=== PATIENT | male | born 1980 | race Caucasian/White ===

== ENCOUNTER → 2016-03-21 | Outpatient (CLI) | payer SELFPAY ==
--- NOTE | 2016-03-21 12:52 | PN ---
DATE OF SERVICE: 03/21/2016 A 35-year-old gentleman who has been [facility] for treatment of obstructive sleep apnea-hypopnea syndrome. We discussed results of diagnostic sleep study and CPAP titration with patient in detail. Diagnostic sleep study showed apnea-hypopnea index 9.5 with oxygen desaturation to 84.8%. Presently, patient is on treatment with CPAP at 9 cm of water. He tried to use equipment every night for the whole night. He sleeps better with the machine. He feels better with treatment during the day. [place] Sleepiness Scale is 4. I checked his CPAP unit. CPAP pressure of 9 cm of water. Usage 27 out of 30 nights, for more than 4 hours 22 out of 30 nights. Average usage 5.7 hours. Leak 4 L/min which is acceptable. Apnea-hypopnea index only 1.1, which is in normal range. IMPRESSION: 1. Obstructive sleep apnea-hypopnea syndrome on control with CPAP at 9 cm of water. Patient demonstrated good compliance with treatment, benefiting from treatment. 2. History of migraines. No recent episodes of migraines improved with treatment on CPAP. 3. Mild obesity. 4. History of bronchitis. 5. Restriction of nasal breathing. 6. Status post hernia repair. 7. Status post tonsillectomy. PLAN: 1. Continue treatment with CPAP every night for the whole night. 2. Losing weight. 3. Sleep hygiene with regular time in bed for at least 8 hours. 4. No driving if feeling any sleepiness. 5. Followup visit in 10 months if no problems. Thank you very much for allowing me to participate in the management of your patient. Sincerely, Remy Stephens MD, PhD, FAASM. Diplomat of [place] [employer], Sleep Medicine Board by [place] [employer] [place] [employer] Psychiatric Aide Instructor of [employer] [place]
== END | disposition home or self-care (01) ==
LOC: SLEEP 11:05
PROVIDERS: ATTEND Internal Medicine
DX: G47.33 Obstructive sleep apnea (adult) (pediatric) (principal); G43.909 Migraine, unspecified, not intractable, without status migrainosus; E66.9 Obesity, unspecified; Z87.898 Personal history of other specified conditions; Z98.890 Other specified postprocedural states

== ENCOUNTER 2016-04-19 13:38 | Inpatient (IN) | payer OTHER ==
[2016-04-19] MEDS ORDERED: ALBUTEROL NEBULIZED 2.5 MG/3 ML INHALATION STA (15:37)
[2016-04-19] MEDS ORDERED: IPRATROPIUM 0.5 MG/2.5 ML NEBU INHALATION STA ×2 (15:37→18:00)
[2016-04-19] MEDS ORDERED: SODIUM CHLORIDE 0.9% 1,000 ML IV STA (15:37)
[2016-04-19] MEDS ORDERED: KETOROLAC 30 MG/ML 1 ML VIAL IVP STA (15:39)
[2016-04-19] MEDS ORDERED: ACETAMINOPHEN IV (For NPO) 1,000 MG in EMPTY BAG 1 BAG IVPB STA (15:39)
--- NOTE | 2016-04-19 15:59 | ED ---
General Adult HPI - General Chief complaint: Upper Respiratory Infection Stated complaint: Congestion/SOB/Chest Pain Time Seen by Provider: 04/19/16 15:06 Source: patient, RN notes reviewed, old records reviewed Mode of arrival: wheelchair Limitations: no limitations - History of Present Illness Initial comments: This is a 35-year-old male the ER for evaluation of shortness of breath and chest pain. Patient has long-standing lung disease and history of sleep apnea. Patient coming in with substernal chest pain and significant cough and congestion. Patient tried to use CPAP last night with no ability to keep down her keep it on secondary to coughing and bronchospasm. Patient states he still having. Much difficulty breathing, also noted fever today. - Related Data Home Medications Medication Instructions Recorded Confirmed Aspirin/Acetaminophen/Caffeine 2 tab PO Q6H PRN MDD 8 TAB 10/24/15 04/19/16 [Excedrin Extra Strength Caplet] Acetaminophen-Codeine 300-30mg 1 tab PO Q6H PRN 01/10/16 04/19/16 [Tylenol #3] Cyclobenzaprine [Flexeril] 10 mg PO HS PRN 01/10/16 04/19/16 Allergies Allergy/AdvReac Type Severity Reaction Status Date / Time No Known Allergies Allergy Verified 04/19/16 15:10 Review of Systems ROS Statement: Those systems with pertinent positive or pertinent negative responses have been documented in the HPI. ROS Other: All systems not noted in ROS Statement are negative. Past Medical History Past Medical History: Asthma Additional Past Medical History / Comment(s): Headaches History of Any Multi-Drug Resistant Organisms: None Reported Past Surgical History: Hernia Repair Past Psychological History: No Psychological Hx Reported Smoking Status: Never smoker Past Alcohol Use History: None Reported Past Drug Use History: None Reported General Exam Limitations: no limitations General appearance: alert, in no apparent distress Head exam: Present: atraumatic, normocephalic, normal inspection Eye exam: Present: normal appearance, PERRL, EOMI. Absent: scleral icterus, conjunctival injection, periorbital swelling ENT exam: Present: normal exam, mucous membranes moist Neck exam: Present: normal inspection. Absent: tenderness, meningismus, lymphadenopathy Respiratory exam: Present: normal lung sounds bilaterally. Absent: respiratory distress, wheezes, rales, rhonchi, stridor Cardiovascular Exam: Present: regular rate, normal rhythm, normal heart sounds. Absent: systolic murmur, diastolic murmur, rubs, gallop, clicks GI/Abdominal exam: Present: soft, normal bowel sounds. Absent: distended, tenderness, guarding, rebound, rigid Extremities exam: Present: normal inspection, full ROM, normal capillary refill. Absent: tenderness, pedal edema, joint swelling, calf tenderness Back exam: Present: normal inspection Neurological exam: Present: alert, oriented X3, CN II-XII intact Psychiatric exam: Present: normal affect, normal mood Skin exam: Present: warm, dry, intact, normal color. Absent: rash Course Vital Signs 04/19/16 04/19/16 04/19/16 13:39 15:26 16:05 Temperature 98.6 F 101.7 F H Pulse Rate 111 H 101 H 94 Respiratory 18 18 Rate Blood Pressure 130/76 126/70 O2 Sat by Pulse 94 L 96 Oximetry 04/19/16 04/19/16 04/19/16 16:22 16:52 17:04 Temperature Pulse Rate 100 119 H 118 H Respiratory 22 Rate Blood Pressure 126/70 O2 Sat by Pulse 97 Oximetry 04/19/16 17:39 Temperature 99.0 F Pulse Rate 106 H Respiratory 18 Rate Blood Pressure 124/57 O2 Sat by Pulse 93 L Oximetry - Reevaluation(s) Reevaluation #1: 04/19/16 18:03 Patient with no real improvement after breathing treatment, patient does have sleep apnea, patient's oxygenation remains around 89% on room air Medical Decision Making - Medical Decision Making 35 male the ER for evaluation. This patient today presents for evaluation of severe shortness of breath cough and congestion, tachycardia low pulse ox. Patient will be admitted for continued hydration and IV steroids and around-the- clock breathing treatments. - Lab Data Result diagrams: 04/19/16 15:55 04/19/16 15:55 Lab Results 04/19/16 04/19/16 04/19/16 Range/Units 15:55 15:55 15:55 WBC 5.7 (3.8-10.6) k/uL RBC 4.78 (4.30-5.90) m/uL Hgb 14.1 (13.0-17.5) gm/dL Hct 42.6 (39.0-53.0) % MCV 89.1 (80.0-100.0) fL MCH 29.4 (25.0-35.0) pg MCHC 33.0 (31.0-37.0) g/dL RDW 13.4 (11.5-15.5) % Plt Count 225 (150-450) k/uL Neutrophils % 76 % Lymphocytes % 14 % Monocytes % 7 % Eosinophils % 1 % Basophils % 1 % Neutrophils # 4.3 (1.3-7.7) k/uL Lymphocytes # 0.8 L (1.0-4.8) k/uL Monocytes # 0.4 (0-1.0) k/uL Eosinophils # 0.1 (0-0.7) k/uL Basophils # 0.0 (0-0.2) k/uL PT (9.0-12.0) sec INR (<1.1) APTT (22.0-30.0) sec Sodium 140 (137-145) mmol/L Potassium 4.1 (3.5-5.1) mmol/L Chloride 103 (98-107) mmol/L Carbon Dioxide 21 L (22-30) mmol/L Anion Gap 16 mmol/L BUN 13 (9-20) mg/dL Creatinine 1.04 (0.66-1.25) mg/dL Est GFR (MDRD) Af Amer >60 (>60 ml/min/1.73 sqM) Est GFR (MDRD) Non-Af >60 (>60 ml/min/1.73 sqM) Glucose 83 (74-99) mg/dL Calcium 8.6 (8.4-10.2) mg/dL Magnesium 2.2 (1.6-2.3) mg/dL Total Bilirubin 0.7 (0.2-1.3) mg/dL AST 29 (17-59) U/L ALT 40 (21-72) U/L Alkaline Phosphatase 88 (38-126) U/L Total Creatine Kinase 173 H (55-170) U/L CK-MB (CK-2) 1.0 (0.0-2.4) ng/mL CK-MB (CK-2) Rel Index 0.6 Troponin I <0.012 (0.000-0.034) ng/mL NT-Pro-B Natriuret Pep pg/mL Total Protein 7.9 (6.3-8.2) g/dL Albumin 4.3 (3.5-5.0) g/dL 04/19/16 04/19/16 Range/Units 15:55 15:55 WBC (3.8-10.6) k/uL RBC (4.30-5.90) m/uL Hgb (13.0-17.5) gm/dL Hct (39.0-53.0) % MCV (80.0-100.0) fL MCH (25.0-35.0) pg MCHC (31.0-37.0) g/dL RDW (11.5-15.5) % Plt Count (150-450) k/uL Neutrophils % % Lymphocytes % % Monocytes % % Eosinophils % % Basophils % % Neutrophils # (1.3-7.7) k/uL Lymphocytes # (1.0-4.8) k/uL Monocytes # (0-1.0) k/uL Eosinophils # (0-0.7) k/uL Basophils # (0-0.2) k/uL PT 11.5 (9.0-12.0) sec INR 1.2 (<1.1) APTT 27.1 (22.0-30.0) sec Sodium (137-145) mmol/L Potassium (3.5-5.1) mmol/L Chloride (98-107) mmol/L Carbon Dioxide (22-30) mmol/L Anion Gap mmol/L BUN (9-20) mg/dL Creatinine (0.66-1.25) mg/dL Est GFR (MDRD) Af Amer (>60 ml/min/1.73 sqM) Est GFR (MDRD) Non-Af (>60 ml/min/1.73 sqM) Glucose (74-99) mg/dL Calcium (8.4-10.2) mg/dL Magnesium (1.6-2.3) mg/dL Total Bilirubin (0.2-1.3) mg/dL AST (17-59) U/L ALT (21-72) U/L Alkaline Phosphatase (38-126) U/L Total Creatine Kinase (55-170) U/L CK-MB (CK-2) (0.0-2.4) ng/mL CK-MB (CK-2) Rel Index Troponin I (0.000-0.034) ng/mL NT-Pro-B Natriuret Pep 86 pg/mL Total Protein (6.3-8.2) g/dL Albumin (3.5-5.0) g/dL - Radiology Data Radiology results: report reviewed (Chest x-ray is negative for acute disease), image reviewed Disposition Clinical Impression: Acute bronchitis, Asthmatic bronchitis, Upper respiratory infection Disposition: ADMITTED IP TO THIS [facility] Condition: Good Referrals: Hanna Salinas DO [Primary Care Provider] - 1-2 days
[2016-04-19 16:07] LABS: Basophils % (A) 1 %; CH 29.4; CHCM 33.2; Eosinophils # (A) 0.1 k/uL (0-0.7); Eosinophils % (A) 1 %; HCT 42.6 % (39.0-53.0); HDW 2.46; HGB 14.1 gm/dL (13.0-17.5); Luc # (Auto) 0.14; Luc % (Auto) 3; Lymphocytes # (A) 0.8 k/uL (1.0-4.8); Lymphocytes % (A) 14 %; MCH 29.4 pg (25.0-35.0); MCV 89.1 fL (80.0-100.0); Mean Platelet Volume 7.7; Monocytes # (A) 0.4 k/uL (0-1.0); Monocytes % (A) 7 %; Neutrophils # (A) 4.3 k/uL (1.3-7.7); Neutrophils % (A) 76 %; RBC 4.78 m/uL (4.30-5.90); RDW 13.4 % (11.5-15.5); WBC 5.7 k/uL (3.8-10.6); WBC (Perox) 5.79
[2016-04-19 16:18] LABS: ALT 40 U/L (21-72); AST 29 U/L (17-59); Alkaline Phosphatase 88 U/L (38-126); Anion Gap 16 mmol/L; Blood Urea Nitrogen 13 mg/dL (9-20); Calcium 8.6 mg/dL (8.4-10.2); Carbon Dioxide 21 mmol/L (22-30); Chloride 103 mmol/L (98-107); Glucose 83 mg/dL (74-99); INR 1.2 (<1.1); Magnesium 2.2 mg/dL (1.6-2.3); Non-African American GFR(MDRD) >60 (>60 ml/min/1.73 sqM); Partial Thromboplastin Time 27.1 sec (22.0-30.0); Potassium 4.1 mmol/L (3.5-5.1); Prothrombin Time 11.5 sec (9.0-12.0); Sodium 140 mmol/L (137-145); Total Bilirubin 0.7 mg/dL (0.2-1.3); Total Protein 7.9 g/dL (6.3-8.2)
[2016-04-19 16:38] LABS: Creatine Kinase 173 U/L (55-170)
[2016-04-19 16:51] LABS: Troponin I <0.012 ng/mL (0.000-0.034)
--- NOTE | 2016-04-19 17:46 | XR ---
EXAMINATION TYPE: XR chest 2V DATE OF EXAM: 04/19/2016 5:41 PM COMPARISON: 01/10/2016 HISTORY: Short of breath and cough TECHNIQUE: Frontal and lateral views of the chest are obtained. FINDINGS: Heart and mediastinum are normal. Lungs are clear. Diaphragm is normal. The bony thorax is intact. There are chest leads. IMPRESSION: No active cardiac pulmonary disease. No change.
[2016-04-19] MEDS ORDERED: methylPREDNISolone SOD SUCCI 125 MG/2 ML VIAL IV STA (18:00)
[2016-04-19] MEDS ORDERED: LEVALBUTEROL NEB 1.25 MG/3 ML AMP INHALATION STA (18:00)
[2016-04-19] MEDS ORDERED: ACETAMINOPHEN TAB 325 MG TAB PO PRN (18:37)
[2016-04-19] MEDS ORDERED: OSELTAMIVIR 75 MG CAP PO STA (18:40)
[2016-04-19 19:26] VITALS: RESP 16
[2016-04-19] MEDS: methylPREDNISolone SOD SUCCI 125 MG/2 ML VIAL IV SCH (19:41)
[2016-04-19] MEDS: SODIUM CHLORIDE 0.9% 1,000 ML IV SCH (19:42)
[2016-04-19] MEDS: IPRATROPIUM-ALBUTEROL 3 ML NEB INHALATION SCH (20:09)
[2016-04-19 23:14] VITALS: BMI 34.2
[2016-04-20] MEDS: methylPREDNISolone SOD SUCCI 125 MG/2 ML VIAL IV SCH ×3 (00:08→11:07)
[2016-04-20] MEDS: IBUPROFEN 600 MG TAB PO SCH ×3 (03:26→15:36)
[2016-04-20] MEDS: IPRATROPIUM-ALBUTEROL 3 ML NEB INHALATION SCH ×2 (07:17→11:15)
[2016-04-20] MEDS: SODIUM CHLORIDE 0.9% 1,000 ML IV SCH ×2 (08:00→10:30)
[2016-04-20] MEDS: OSELTAMIVIR 75 MG CAP PO SCH ×2 (08:02→21:16)
[2016-04-20] MEDS: ALBUTEROL NEBULIZED 2.5 MG/3 ML INHALATION SCH ×2 (15:11→19:31)
[2016-04-20] MEDS: ENOXAPARIN 40 MG/0.4 ML SYRINGE SQ SCH (15:51)
--- NOTE | 2016-04-20 16:02 | HP ---
DATE OF ADMISSION: 04/19/2016 PRESENTING COMPLAINT: Cough. HISTORY OF PRESENTING COMPLAINT: This is a pleasant 35 -year-old patient of Dr. Hanna Salinas with history of asthma, obstructive sleep apnea, uses CPAP machine. Patient presented with shortness of breath, cough, wheezing, aching all over, fever, fever going on for at least 24 hours. Presented to the hospital and found to have asthma exacerbation and influenza A. Admitted for the same. REVIEW OF SYSTEMS: CONSTITUTIONAL: Tired. HEENT: None. RESPIRATORY: As above. CARDIOVASCULAR: None. GASTROINTESTINAL: None. GENITOURINARY: None. MUSCULOSKELETAL: Aches and pains in the joints. Dermatological: None. HEMATOLOGICAL: None. LYMPHATIC: None. PSYCHIATRY: None. NEUROLOGICAL: None. PAST MEDICAL HISTORY: Asthma, sleep apnea. PAST SURGICAL HISTORY: Hernia repair. SOCIAL HISTORY: Lives with a roommate. Works at [employer]. Alcohol rarely. Does not smoke. FAMILY HISTORY: Reviewed, noncontributory to the presentation. HOME MEDICATIONS: 1. Flexeril 10 mg q.h.s. p.r.n. 2. Aspirin extra strength. 3. Tylenol #3 1 tablet q.6 p.r.n. ALLERGIES: None. On examination, temperature 101.7, pulse 101, respiration 18, blood pressure 122/70, pulse ox 96% on room air. GENERAL APPEARANCE: Sitting up tired-appearing. EYES: Pupils equal. Conjunctivae normal. HEENT: External appearance of nose and ears normal. Oral cavity normal. NECK: JVD not raised. Mass not palpable. RESPIRATORY: Effort increased. LUNGS: Decreased breath sounds. Expiratory wheezing. CARDIOVASCULAR: First and second sounds normal. No edema. ABDOMEN: Soft. Nontender. Liver and spleen not palpable. LYMPHATIC: No lymph nodes palpable in neck or axillae. PSYCHIATRY: Alert and oriented x3. Mood and affect normal. NEUROLOGICAL: Pupils equal. Cranial nerves grossly intact. Power and sensation grossly intact. INVESTIGATIONS: White count 5.7, hemoglobin 14.1, potassium 4.1. Influenza A ( ) detected. Chest x-ray ( ) active. ASSESSMENT: 1. Acute influenza A infection. 2. Acute intermittent asthma exacerbation secondary to above. 3. Obesity; body mass index of 34.2. 4. Sleep apnea previous used CPAP machine. PLAN: Patient is put on nebulized bronchodilators, IV steroids. Tamiflu. Care was discussed with the patient. Also given IV fluids.
[2016-04-20] MEDS: methylPREDNISolone SOD SUCCI 40 MG/ML 1 ML VIAL IV SCH (21:16)
[2016-04-21] MEDS: SODIUM CHLORIDE 0.9% 1,000 ML IV SCH ×2 (00:01→07:49)
[2016-04-21] MEDS: IBUPROFEN 600 MG TAB PO SCH ×2 (04:08→07:50)
[2016-04-21] MEDS: ALBUTEROL NEBULIZED 2.5 MG/3 ML INHALATION SCH ×3 (07:39→15:27)
[2016-04-21] MEDS: ENOXAPARIN 40 MG/0.4 ML SYRINGE SQ SCH (07:49)
[2016-04-21] MEDS: OSELTAMIVIR 75 MG CAP PO SCH (07:50)
[2016-04-21] MEDS: methylPREDNISolone SOD SUCCI 40 MG/ML 1 ML VIAL IV SCH (07:50)
[2016-04-21 16:26] VITALS: BP 137/85; PULSE 87; TEMP 97.8
--- NOTE | 2016-04-22 22:40 | DS ---
DATE OF ADMISSION: 04/19/2016 DATE OF DISCHARGE: 04/21/2016 FINAL DIAGNOSES: 1. Acute influenza A infection, possibly pneumonitis. 2. Acute intermittent asthma exacerbation secondary to above. 3. Obesity; body mass index of 34.2. 4. Chronic sleep apnea; uses a CPAP machine. HOSPITAL COURSE: This patient presented with influenza A pneumonitis and ended up with asthma exacerbation. Responded well to nebulized bronchodilators, Tamiflu. Doing better at the time of discharge. Tolerating a diet. On examination, lungs have decreased breath sounds. CARDIOVASCULAR: First and second sounds normal. DISCHARGE MEDICATIONS: 1. Tylenol 3 one tablet q.6 p.r.n. 2. Flexeril 10 mg p.o. at bedtime p.r.n. 3. Tamiflu 75 mg p.o. q.12. 4. Prednisone taper. 5. Albuterol p.r.n. Patient to return to work on April 25. Patient has been told he should be excused from jury duty, which is due tomorrow. Follow up with Dr. Hanna Salinas in 3 days.
== END 2016-04-21 17:00 | disposition home or self-care (01) | DRG 194 ==
LOC: EC 13:38 → 5MS5E 18:02
PROVIDERS: ADMIT Hospitalist; ATTEND Hospitalist
DX: J10.00 Influenza due to other identified influenza virus with unspecified type of pneumonia (principal); J45.21 Mild intermittent asthma with (acute) exacerbation; G47.33 Obstructive sleep apnea (adult) (pediatric); Z79.82 Long term (current) use of aspirin; Z79.899 Other long term (current) drug therapy
CPT/HCPCS: 36415; 71020; 80053; 82550; 82553; 83735; 83880; 84484; 85025; 85379; 85610; 85730; 87502; 93005; 94640; 94645; 96361; 96374; 96375; 99285

== ENCOUNTER 2017-01-24 22:18 | Emergency (ER) | payer SELFPAY ==
[2017-01-24 22:27] VITALS: PULSE 66
[2017-01-24] MEDS ORDERED: SODIUM CHLORIDE 0.9% 1,000 ML IV STA (22:51)
--- NOTE | 2017-01-24 22:59 | ED ---
Extremity Problem HPI - General Chief complaint: Extremity Problem,Nontraumatic Stated complaint: Arm Pain Time Seen by Provider: 01/24/17 22:33 Source: patient, RN notes reviewed, old records reviewed Mode of arrival: ambulatory Limitations: no limitations - History of Present Illness Initial comments: 36-year-old male presents emergency Department chief complaint of right hand cramping today while trying to work. Apparently patient pulled over to the side of the road because his hands cramping. He states he felt extremely nauseous at that time. He vomited. He also defecated accidentally. Patient states that he has never done that before. Denies any recent falls or trauma. Denies any back pain or leg numbness or tingling. Denies any chest pain or shortness of breath. Patient states that he has no significant abdominal pain at this time. He does complain of right hand cramping and pain. Sensory may have carpal tunnel syndrome. He complains of some numbness or tingling over the third through fourth fingers. 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 - Related Data Home Medications Medication Instructions Recorded Confirmed Aspirin/Acetaminophen/Caffeine 2 tab PO Q6H PRN 10/24/15 01/24/17 [Excedrin Extra Strength Caplet] Acetaminophen-Codeine 300-30mg 1 tab PO Q6H PRN 01/10/16 01/24/17 [Tylenol w/codeine #3] Cyclobenzaprine [Flexeril] 10 mg PO HS PRN 01/10/16 01/24/17 Cholecalciferol [Vitamin D3] 1,000 unit PO DAILY 01/24/17 01/24/17 Allergies Allergy/AdvReac Type Severity Reaction Status Date / Time No Known Allergies Allergy Verified 01/24/17 22:40 Review of Systems ROS Statement: Those systems with pertinent positive or pertinent negative responses have been documented in the HPI. ROS Other: All systems not noted in ROS Statement are negative. Past Medical History Past Medical History: Asthma Additional Past Medical History / Comment(s): Headaches History of Any Multi-Drug Resistant Organisms: None Reported Past Surgical History: Hernia Repair Past Psychological History: No Psychological Hx Reported Smoking Status: Never smoker Past Alcohol Use History: None Reported Past Drug Use History: None Reported - Past Family History Mother Family Medical History: No Reported History Father Family Medical History: Asthma Additional Family Medical History / Comment(s): Pt states that he is very sick but does not want to elaborate General Exam - General Exam Comments Initial Comments: This is a 36 year old male, no distress Limitations: no limitations General appearance: alert, in no apparent distress Head exam: Present: atraumatic, normocephalic, normal inspection Eye exam: Present: normal appearance, PERRL, EOMI. Absent: scleral icterus, conjunctival injection, periorbital swelling ENT exam: Present: normal exam, mucous membranes moist Neck exam: Present: normal inspection. Absent: tenderness, meningismus, lymphadenopathy Respiratory exam: Present: normal lung sounds bilaterally. Absent: respiratory distress, wheezes, rales, rhonchi, stridor Cardiovascular Exam: Present: regular rate, normal rhythm, normal heart sounds. Absent: systolic murmur, diastolic murmur, rubs, gallop, clicks GI/Abdominal exam: Present: soft, normal bowel sounds. Absent: distended, tenderness, guarding, rebound, rigid Rectal exam: Present: normal inspection, normal rectal tone, heme (-) stool Extremities exam: Present: normal inspection, full ROM, normal capillary refill , other (right hand has full range of motion and sensation intact. ). Absent: tenderness, pedal edema, joint swelling, calf tenderness Back exam: Present: normal inspection Neurological exam: Present: alert, oriented X3, CN II-XII intact Psychiatric exam: Present: normal affect, normal mood Skin exam: Present: warm, dry, intact, normal color. Absent: rash Course Vital Signs 01/24/17 01/25/17 01/25/17 22:24 00:39 01:29 Temperature 97.8 F 97.6 F 97.6 F Pulse Rate 66 66 66 Respiratory 16 20 20 Rate Blood Pressure 120/79 136/76 136/76 O2 Sat by Pulse 99 96 96 Oximetry Medical Decision Making - Medical Decision Making 36-year-old male presents emergency Department chief complaint of right hand cramping today while trying to work. Apparently patient pulled over to the side of the road because his hands cramping. He states he felt extremely nauseous at that time. He vomited. He also defecated accidentally. Patient states that he has never done that before. Denies any recent falls or trauma. As normal rectal tone, all of his lab work was reviewed and normal. 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 Incident with carpal tunnel. Discuss at this time I didn't have exact cause of her patients timing episode. This christiano said he needs a follow up with his primary care provider in regards to the carpal tunnel syndrome as well as these episodes. He has no sadly Debi. Return parameter discussed. - Lab Data Result diagrams: 01/24/17 23:00 01/24/17 23:00 Lab Results 01/24/17 01/24/17 01/24/17 Range/Units 23:00 23:00 23:00 WBC 7.3 (3.8-10.6) k/uL RBC 4.78 (4.30-5.90) m/uL Hgb 13.6 (13.0-17.5) gm/dL Hct 42.4 (39.0-53.0) % MCV 88.7 (80.0-100.0) fL MCH 28.4 (25.0-35.0) pg MCHC 32.1 (31.0-37.0) g/dL RDW 14.5 (11.5-15.5) % Plt Count 277 (150-450) k/uL Neutrophils % 67 % Lymphocytes % 21 % Monocytes % 7 % Eosinophils % 4 % Basophils % 1 % Neutrophils # 4.9 (1.3-7.7) k/uL Lymphocytes # 1.5 (1.0-4.8) k/uL Monocytes # 0.5 (0-1.0) k/uL Eosinophils # 0.3 (0-0.7) k/uL Basophils # 0.1 (0-0.2) k/uL Sodium 139 (137-145) mmol/L Potassium 4.3 (3.5-5.1) mmol/L Chloride 107 (98-107) mmol/L Carbon Dioxide 20 L (22-30) mmol/L Anion Gap 12 mmol/L BUN 16 (9-20) mg/dL Creatinine 1.10 (0.66-1.25) mg/dL Est GFR (MDRD) Af Amer >60 (>60 ml/min/1.73 sqM) Est GFR (MDRD) Non-Af >60 (>60 ml/min/1.73 sqM) Glucose 100 H (74-99) mg/dL Calcium 9.4 (8.4-10.2) mg/dL Total Bilirubin 0.4 (0.2-1.3) mg/dL AST 19 (17-59) U/L ALT 40 (21-72) U/L Alkaline Phosphatase 90 (38-126) U/L Troponin I <0.012 (0.000-0.034) ng/mL Total Protein 6.9 (6.3-8.2) g/dL Albumin 4.0 (3.5-5.0) g/dL Amylase 38 (30-110) U/L Lipase 94 (23-300) U/L Urine Color Urine Appearance (Clear) Urine pH (5.0-8.0) Ur Specific [place] (1.001-1.035) Urine Protein (Negative) Urine Glucose (UA) (Negative) Urine Ketones (Negative) Urine Blood (Negative) Urine Nitrite (Negative) Urine Bilirubin (Negative) Urine Urobilinogen (<2.0) mg/dL Ur Leukocyte Esterase (Negative) Stool Occult Blood (Negative) 01/25/17 01/25/17 Range/Units 00:03 00:36 WBC (3.8-10.6) k/uL RBC (4.30-5.90) m/uL Hgb (13.0-17.5) gm/dL Hct (39.0-53.0) % MCV (80.0-100.0) fL MCH (25.0-35.0) pg MCHC (31.0-37.0) g/dL RDW (11.5-15.5) % Plt Count (150-450) k/uL Neutrophils % % Lymphocytes % % Monocytes % % Eosinophils % % Basophils % % Neutrophils # (1.3-7.7) k/uL Lymphocytes # (1.0-4.8) k/uL Monocytes # (0-1.0) k/uL Eosinophils # (0-0.7) k/uL Basophils # (0-0.2) k/uL Sodium (137-145) mmol/L Potassium (3.5-5.1) mmol/L Chloride (98-107) mmol/L Carbon Dioxide (22-30) mmol/L Anion Gap mmol/L BUN (9-20) mg/dL Creatinine (0.66-1.25) mg/dL Est GFR (MDRD) Af Amer (>60 ml/min/1.73 sqM) Est GFR (MDRD) Non-Af (>60 ml/min/1.73 sqM) Glucose (74-99) mg/dL Calcium (8.4-10.2) mg/dL Total Bilirubin (0.2-1.3) mg/dL AST (17-59) U/L ALT (21-72) U/L Alkaline Phosphatase (38-126) U/L Troponin I (0.000-0.034) ng/mL Total Protein (6.3-8.2) g/dL Albumin (3.5-5.0) g/dL Amylase (30-110) U/L Lipase (23-300) U/L Urine Color Light Yellow Urine Appearance Clear (Clear) Urine pH 5.5 (5.0-8.0) Ur Specific [place] 1.006 (1.001-1.035) Urine Protein Negative (Negative) Urine Glucose (UA) Negative (Negative) Urine Ketones Negative (Negative) Urine Blood Negative (Negative) Urine Nitrite Negative (Negative) Urine Bilirubin Negative (Negative) Urine Urobilinogen <2.0 (<2.0) mg/dL Ur Leukocyte Esterase Negative (Negative) Stool Occult Blood Negative (Negative) 01/25/17 00:29 EKG shows sinus bradycardia with sinus arrhythmia, possible left lateral infarct. Ventricular rate 56 bpm period. The 152 ms. QRS duration 82 ms. QT QTc is 44/[address] elevation or T-wave inversion. - Radiology Data Radiology results: report reviewed KUB x-ray is negative for any acute process. Disposition Clinical Impression: Neuropathy of right hand, Vomiting, Incontinence of bowel Disposition: HOME SELF-CARE Condition: Good Instructions: Paresthesia (ED) Additional Instructions: Patient has a follow-up with primary care provider. Recommended remaining hydrated, take Motrin Tylenol for hand pain.. Patient should return to the emergency department if any alarming signs or symptoms occur. Referrals: Hanna Salinas DO [Primary Care Provider] - 1-2 days Time of Disposition: 00:31
[2017-01-24 23:11] LABS: Basophils # (A) 0.1 k/uL (0-0.2); Basophils % (A) 1 %; CH 28.4; CHCM 32.2; Eosinophils # (A) 0.3 k/uL (0-0.7); Eosinophils % (A) 4 %; HCT 42.4 % (39.0-53.0); HDW 2.38; HGB 13.6 gm/dL (13.0-17.5); Luc # (Auto) 0.07; Luc % (Auto) 1; Lymphocytes # (A) 1.5 k/uL (1.0-4.8); Lymphocytes % (A) 21 %; MCH 28.4 pg (25.0-35.0); MCHC 32.1 g/dL (31.0-37.0); MCV 88.7 fL (80.0-100.0); Mean Platelet Volume 7.4; Monocytes # (A) 0.5 k/uL (0-1.0); Monocytes % (A) 7 %; Neutrophils # (A) 4.9 k/uL (1.3-7.7); Neutrophils % (A) 67 %; RBC 4.78 m/uL (4.30-5.90); RDW 14.5 % (11.5-15.5); WBC 7.3 k/uL (3.8-10.6); WBC (Perox) 7.28
[2017-01-24 23:21] LABS: ALT 40 U/L (21-72); AST 19 U/L (17-59); Alkaline Phosphatase 90 U/L (38-126); Amylase 38 U/L (30-110); Anion Gap 12 mmol/L; Blood Urea Nitrogen 16 mg/dL (9-20); Calcium 9.4 mg/dL (8.4-10.2); Carbon Dioxide 20 mmol/L (22-30); Chloride 107 mmol/L (98-107); Glucose 100 mg/dL (74-99); Non-African American GFR(MDRD) >60 (>60 ml/min/1.73 sqM); Potassium 4.3 mmol/L (3.5-5.1); Sodium 139 mmol/L (137-145); Total Bilirubin 0.4 mg/dL (0.2-1.3); Total Protein 6.9 g/dL (6.3-8.2)
--- NOTE | 2017-01-24 23:41 | XR ---
EXAMINATION TYPE: XR KUB DATE OF EXAM: 01/24/2017 COMPARISON: NONE HISTORY: Abdominal pain TECHNIQUE: 2 views FINDINGS: Bowel gas pattern is normal. There is no sign of intestinal obstruction or pneumoperitoneum . Fecal pattern is normal. Lung bases are clear. There are no pathologic calcifications over the kidn eys. IMPRESSION: Nonacute abdomen.
[2017-01-25 00:40] VITALS: BP 136/76; RESP 20; TEMP 97.6
[2017-01-25 00:48] LABS: Appearance,Urine Clear (Clear); Bilirubin,Urine Negative (Negative); Glucose,Urine (UA) Negative (Negative); Ketones,Urine Negative (Negative); Leukocyte Esterase,Urine Negative (Negative); Nitrite,Urine Negative (Negative); PH, Urine 5.5 (5.0-8.0); Protein,Urine Negative (Negative); Specific Gravity,Urine 1.006 (1.001-1.035); UA Billing (MACRO vs. MICRO) CHEM; Urobilinogen,Urine <2.0 mg/dL (<2.0)
== END 2017-01-25 01:28 | disposition home or self-care (01) ==
LOC: EC 22:18
DX: G62.9 Polyneuropathy, unspecified (principal); R11.10 Vomiting, unspecified; R15.9 Full incontinence of feces; Z98.890 Other specified postprocedural states; Z79.899 Other long term (current) drug therapy
CPT/HCPCS: 36415; 74000; 80053; 81003; 82150; 82272; 83690; 84484; 85025; 93005; 96360; 99284

== ENCOUNTER 2017-02-25 13:55 | Emergency (ER) | payer OTHER ==
--- NOTE | 2017-02-25 15:09 | ED ---
General Adult HPI - General Chief complaint: Upper Respiratory Infection Stated complaint: coughing Time Seen by Provider: 02/25/17 15:01 Source: patient, RN notes reviewed Mode of arrival: ambulatory Limitations: no limitations - History of Present Illness Initial comments: patient is a pleasant 36-year-old male presenting to the emergency department complaints of cough. Onset of symptoms was a couple of days ago. Patient has occasional clear white sputum. No fevers. Patient has occasional discomfort in his chest with coughing only. Patient has occasional sore throat with cough only. No leg pain or leg swelling. No dyspnea. - Related Data Home Medications Medication Instructions Recorded Confirmed Aspirin/Acetaminophen/Caffeine 2 tab PO Q6H PRN 10/24/15 02/25/17 [Excedrin Extra Strength Caplet] Previous Rx's Medication Instructions Recorded Albuterol Inhaler [Ventolin Hfa 2 puff INHALATION Q4HR PRN #1 02/25/17 Inhaler] inhaler Allergies Allergy/AdvReac Type Severity Reaction Status Date / Time No Known Allergies Allergy Verified 02/25/17 15:25 Review of Systems ROS Statement: Those systems with pertinent positive or pertinent negative responses have been documented in the HPI. ROS Other: All systems not noted in ROS Statement are negative. Constitutional: Denies: fever, chills Eyes: Denies: eye pain ENT: Reports: throat pain. Denies: ear pain Respiratory: Reports: cough. Denies: dyspnea Cardiovascular: Denies: palpitations Endocrine: Denies: fatigue Gastrointestinal: Reports: vomiting (Patient has spit up some with cough.). Denies: abdominal pain Genitourinary: Denies: dysuria Musculoskeletal: Denies: back pain Skin: Denies: rash Neurological: Denies: headache Past Medical History Past Medical History: Asthma Additional Past Medical History / Comment(s): Headaches History of Any Multi-Drug Resistant Organisms: None Reported Past Surgical History: Hernia Repair Past Psychological History: No Psychological Hx Reported Smoking Status: Never smoker Past Alcohol Use History: Occasional Past Drug Use History: None Reported - Past Family History Mother Family Medical History: No Reported History Father Family Medical History: Asthma Additional Family Medical History / Comment(s): Pt states that he is very sick but does not want to elaborate General Exam Limitations: no limitations General appearance: alert, in no apparent distress Head exam: Present: atraumatic Eye exam: Present: normal appearance, PERRL ENT exam: Present: other (mild pharyngeal erythema) Neck exam: Present: normal inspection. Absent: tenderness, meningismus, lymphadenopathy Respiratory exam: Present: normal lung sounds bilaterally. Absent: respiratory distress, wheezes Cardiovascular Exam: Present: regular rate, normal rhythm GI/Abdominal exam: Present: soft. Absent: tenderness Extremities exam: Present: normal inspection. Absent: pedal edema, calf tenderness Neurological exam: Present: alert Psychiatric exam: Present: normal affect, normal mood Skin exam: Present: normal color Course Vital Signs 02/25/17 02/25/17 14:32 15:30 Temperature 99.0 F Pulse Rate 102 H Respiratory 20 16 Rate Blood Pressure 141/68 O2 Sat by Pulse 99 Oximetry Medical Decision Making - Medical Decision Making patient reevaluated and resting comfortably in bed. Patient updated on results and plan. Work note will be provided as requested. - Lab Data Lab Results 02/25/17 02/25/17 Range/Units 15:26 15:26 Influenza Type A RNA Not Detected (Not Detectd) Influenza Type B (PCR) Not Detected (Not Detectd) Group A Strep Rapid Negative (Negative) - Radiology Data Radiology results: image reviewed (chest x-ray does show unchanged mild interstitial prominence, possible bronchitis or chronic asthma.) Disposition Clinical Impression: Acute bronchitis Disposition: HOME SELF-CARE Condition: Stable Instructions: Acute Bronchitis (ED) Additional Instructions: please follow-up with primary care physician in the next day or 2 for recheck. Albuterol inhaler as needed. Return for difficulty breathing, worsening symptoms or other concerns. Prescriptions: Albuterol Inhaler [Ventolin Hfa Inhaler] 2 puff INHALATION Q4HR PRN #1 inhaler PRN Reason: Dyspnea Referrals: Hanna Salinas DO [Primary Care Provider] - 1-2 days Time of Disposition: 16:07
[2017-02-25 15:31] VITALS: RESP 16
--- NOTE | 2017-02-25 15:42 | XR ---
EXAMINATION TYPE: XR chest 2V DATE OF EXAM: 02/25/2017 COMPARISON: 04/19/2016 HISTORY: 36-year-old male with chest pain TECHNIQUE: PA and lateral views FINDINGS: The cardiomediastinal silhouette, aorta, and pulmonary vasculature are within normal limits. Mild int erstitial prominence is unchanged. Otherwise, lungs and pleural spaces are clear. IMPRESSION: Unchanged mild interstitial prominence, possible bronchitis or chronic asthma. No acute cardiopulmona ry process seen.
[2017-02-25 16:23] VITALS: BP 138/79; PULSE 81; TEMP 98.2
== END 2017-02-25 16:20 | disposition home or self-care (01) ==
LOC: EC 13:55
DX: J20.9 Acute bronchitis, unspecified (principal)
CPT/HCPCS: 71020; 87081; 87430; 87502; 99283

== ENCOUNTER 2017-05-07 22:22 | Emergency (ER) | payer BC ==
[2017-05-07 22:26] VITALS: RESP 18
[2017-05-07] MEDS ORDERED: KETOROLAC 60 MG/2 ML VIAL IM STA (22:47)
[2017-05-07] MEDS ORDERED: diphenhydrAMINE 50 MG/ML 1 ML VIAL IM STA (22:47)
[2017-05-07] MEDS ORDERED: METOCLOPRAMIDE 5 MG/ML 2 ML VIAL IM STA (22:47)
--- NOTE | 2017-05-07 22:52 | ED ---
Headache HPI - General Chief Complaint: Headache Stated Complaint: migraine Time Seen by Provider: 05/07/17 22:35 Mode of arrival: ambulatory Limitations: no limitations - History of Present Illness Initial Comments: This patient is a 36-year-old man with history of migraines, who presents complaining of having one of his usual migraine headaches. He states that the pains came on yesterday in the morning when he was driving to work and had lights were shining in his eyes. The patient states that he usually takes Excedrin for his headaches and this was helping a little bit, but then over the course of today he was having some vomiting and cannot keep the medication down. When he is not getting relief he decided to be seen here. The patient has not had any fever or chills, neck stiffness or pain, rash, or any neurologic symptoms. He states that the pain is similar to his usual migraine pain. MD Complaint: "migraine" -: days(s) Onset Description: gradual Location: frontal Severity: severe Quality: aching, throbbing Consistency: constant Improves With: nothing Worsens With: none Associated Symptoms: nausea, vomiting Treatments Prior to Arrival: other (Excedrin) - Related Data Home Medications Medication Instructions Recorded Confirmed Aspirin/Acetaminophen/Caffeine 2 tab PO Q6H PRN 10/24/15 05/07/17 [Excedrin Extra Strength Caplet] Albuterol Inhaler [Ventolin Hfa 2 puff INHALATION RT-Q4H PRN 05/07/17 05/07/17 Inhaler] Allergies Allergy/AdvReac Type Severity Reaction Status Date / Time No Known Allergies Allergy Verified 05/07/17 22:53 Review of Systems ROS Statement: Those systems with pertinent positive or pertinent negative responses have been documented in the HPI. ROS Other: All systems not noted in ROS Statement are negative. Constitutional: Denies: fever, chills, weakness Eyes: Denies: vision change Respiratory: Denies: cough, dyspnea Gastrointestinal: Reports: nausea, vomiting. Denies: abdominal pain, diarrhea Musculoskeletal: Denies: back pain Skin: Denies: rash Neurological: Reports: headache. Denies: weakness, numbness, paresthesias, confusion Past Medical History Past Medical History: Asthma Additional Past Medical History / Comment(s): Headaches History of Any Multi-Drug Resistant Organisms: None Reported Past Surgical History: Hernia Repair Past Psychological History: No Psychological Hx Reported Smoking Status: Never smoker Past Alcohol Use History: Occasional Past Drug Use History: None Reported - Past Family History Mother Family Medical History: No Reported History Father Family Medical History: Asthma Additional Family Medical History / Comment(s): Pt states that he is very sick but does not want to elaborate General Exam Limitations: no limitations General appearance: alert, in no apparent distress Head exam: Present: atraumatic, normocephalic Eye exam: Present: normal appearance, PERRL, EOMI. Absent: scleral icterus, conjunctival injection, nystagmus ENT exam: Present: normal oropharynx, mucous membranes moist Neck exam: Present: normal inspection, full ROM. Absent: meningismus Neurological exam: Present: alert, oriented X3, CN II-XII intact. Absent: motor sensory deficit Skin exam: Present: warm, dry, intact, normal color. Absent: rash Course Vital Signs 05/07/17 22:23 Temperature 97.8 F Pulse Rate 68 Respiratory 18 Rate Blood Pressure 136/79 O2 Sat by Pulse 99 Oximetry Disposition Clinical Impression: Migraine Disposition: HOME SELF-CARE Condition: Good Instructions: Acute Headache (ED) Referrals: Hanna Salinas DO [Primary Care Provider] - 1-2 days
[2017-05-07 23:47] VITALS: BP 106/66; PULSE 62; TEMP 98
== END 2017-05-07 23:45 | disposition home or self-care (01) ==
LOC: EC 22:22
DX: G43.909 Migraine, unspecified, not intractable, without status migrainosus (principal)
CPT/HCPCS: 99283; 96372 ×3; J1200; J2765; J1885

== ENCOUNTER → 2017-05-30 | Outpatient (CLI) | payer BC ==
[2017-05-30 11:13] LABS: Basophils # (A) 0.1 k/uL (0-0.2); Basophils % (A) 1 %; Eosinophils # (A) 0.3 k/uL (0-0.7); Eosinophils % (A) 4 %; HCT 43.7 % (39.0-53.0); HGB 14.1 gm/dL (13.0-17.5); Lymphocytes # (A) 1.7 k/uL (1.0-4.8); Lymphocytes % (A) 27 %; MCHC 32.3 g/dL (31.0-37.0); MCV 86.8 fL (80.0-100.0); Mean Platelet Volume 6.8; Monocytes # (A) 0.3 k/uL (0-1.0); Monocytes % (A) 5 %; Neutrophils # (A) 3.9 k/uL (1.3-7.7); Neutrophils % (A) 61 %; Platelet Count 289 k/uL (150-450); RBC 5.04 m/uL (4.30-5.90); RDW 13.9 % (11.5-15.5); WBC 6.4 k/uL (3.8-10.6)
[2017-05-30 11:45] LABS: ALT 23 U/L (21-72); AST 16 U/L (17-59); Albumin 4.2 g/dL (3.5-5.0); Alkaline Phosphatase 86 U/L (38-126); Anion Gap 13 mmol/L; Blood Urea Nitrogen 13 mg/dL (9-20); Calcium 9.6 mg/dL (8.4-10.2); Carbon Dioxide 27 mmol/L (22-30); Chloride 105 mmol/L (98-107); Cholesterol 191 mg/dL (<200); Glucose 90 mg/dL (74-99); HDL Cholesterol 32 mg/dL (40-60); LDL Cholesterol,Calculated 133 mg/dL (0-99); Potassium 4.7 mmol/L (3.5-5.1); Sodium 145 mmol/L (137-145); Total Bilirubin 0.6 mg/dL (0.2-1.3); Total Protein 7.3 g/dL (6.3-8.2); Triglycerides 130 mg/dL (<150)
== END | disposition home or self-care (01) ==
LOC: LABWHC1 10:05
PROVIDERS: ATTEND Family Medicine
DX: Z00.00 Encounter for general adult medical examination without abnormal findings (principal)
CPT/HCPCS: 36415; 80053; 80061; 85025

== ENCOUNTER 2018-03-28 02:51 | Emergency (ER) | payer OTHER ==
[2018-03-28] MEDS ORDERED: IPRATROPIUM-ALBUTEROL 3 ML NEB INHALATION STA (03:27)
--- NOTE | 2018-03-28 03:28 | XR ---
EXAMINATION TYPE: XR chest 2V DATE OF EXAM: 03/28/2018 COMPARISON: 02/25/2017 HISTORY: Cough TECHNIQUE: Frontal and lateral views of the chest are obtained. FINDINGS: Heart and mediastinum are normal. Lungs are clear. Diaphragm is normal. Bony thorax appear s intact. IMPRESSION: Normal chest. No change.
--- NOTE | 2018-03-28 04:24 | ED ---
URI HPI - General Chief Complaint: Upper Respiratory Infection Stated Complaint: Shortness of Breath Source: patient Mode of arrival: ambulatory Limitations: no limitations - History of Present Illness Initial Comments: This patient is 37-year-old man with 2-3 days of cough, congestion and then developing chest congestion over the past day. MD Complaint: cough, nasal congestion Onset/Timin -: days(s) Improves With: nothing Worsens With: nothing Associated Symptoms: denies other symptoms Treatments Prior to Arrival: "cold medicine" - Related Data Home Medications Medication Instructions Recorded Confirmed Aspirin/Acetaminophen/Caffeine 2 tab PO Q6H PRN 10/24/15 05/07/17 [Excedrin Extra Strength Caplet] Albuterol Inhaler [Ventolin Hfa 2 puff INHALATION RT-Q4H PRN 05/07/17 05/07/17 Inhaler] Previous Rx's Medication Instructions Recorded Albuterol Inhaler [Ventolin Hfa 1 - 2 puff INHALATION Q6HR PRN #1 03/28/18 Inhaler] inhaler predniSONE 60 mg PO DAILY #30 tab 03/28/18 Allergies Allergy/AdvReac Type Severity Reaction Status Date / Time No Known Allergies Allergy Verified 03/28/18 02:59 Review of Systems ROS Statement: Those systems with pertinent positive or pertinent negative responses have been documented in the HPI. ROS Other: All systems not noted in ROS Statement are negative. Constitutional: Denies: fever, chills, weakness ENT: Reports: congestion. Denies: ear pain Respiratory: Reports: cough, wheezes. Denies: dyspnea Cardiovascular: Denies: chest pain, palpitations Gastrointestinal: Denies: abdominal pain, vomiting Skin: Denies: rash Neurological: Denies: headache Past Medical History Past Medical History: Asthma Additional Past Medical History / Comment(s): Headaches,heart murmur History of Any Multi-Drug Resistant Organisms: None Reported Past Surgical History: Hernia Repair, Orthopedic Surgery Additional Past Surgical History / Comment(s): rt middle finger Past Psychological History: No Psychological Hx Reported Smoking Status: Never smoker Past Alcohol Use History: Occasional Past Drug Use History: None Reported - Past Family History Mother Family Medical History: No Reported History Father Family Medical History: Asthma Additional Family Medical History / Comment(s): Pt states that he is very sick but does not want to elaborate General Exam Limitations: no limitations General appearance: alert, in no apparent distress Head exam: Present: atraumatic, normocephalic Eye exam: Present: normal appearance. Absent: scleral icterus, conjunctival injection Neck exam: Present: normal inspection, full ROM Respiratory exam: Present: wheezes (There is a trace of end expiratory wheeze). Absent: respiratory distress, rales, rhonchi, stridor, chest wall tenderness, accessory muscle use, decreased breath sounds, prolonged expiratory Cardiovascular Exam: Present: regular rate, normal rhythm, normal heart sounds. Absent: systolic murmur, diastolic murmur, rubs, gallop GI/Abdominal exam: Present: soft. Absent: distended, tenderness, guarding, rebound, mass Skin exam: Present: warm, dry, intact, normal color. Absent: rash Course Vital Signs 03/28/18 03/28/18 03/28/18 02:56 03:30 03:42 Temperature 98.8 F Pulse Rate 100 100 96 Respiratory 22 18 Rate Blood Pressure 143/81 O2 Sat by Pulse 99 Oximetry 03/28/18 05:16 Temperature 97.6 F Pulse Rate 94 Respiratory 17 Rate Blood Pressure 127/84 O2 Sat by Pulse 99 Oximetry Medical Decision Making - Lab Data Lab Results 03/28/18 Range/Units 03:05 Influenza Type A RNA Not Detected (Not Detectd) Influenza Type B (PCR) Not Detected (Not Detectd) Disposition Clinical Impression: Acute bronchitis Disposition: HOME SELF-CARE Condition: Good Instructions (If sedation given, give patient instructions): Acute Bronchitis ( ED) Prescriptions: Albuterol Inhaler [Ventolin Hfa Inhaler] 1 - 2 puff INHALATION Q6HR PRN #1 inhaler PRN Reason: Wheezing predniSONE 60 mg PO DAILY #30 tab Is patient prescribed a controlled substance at d/c from ED?: No Referrals: Hanna Salinas DO [Primary Care Provider] - 1-2 days
[2018-03-28] MEDS ORDERED: predniSONE 20 MG TAB PO STA (04:27)
[2018-03-28 05:17] VITALS: BP 127/84; PULSE 94; RESP 17; TEMP 97.6
== END 2018-03-28 05:21 | disposition home or self-care (01) ==
LOC: EC 02:51
DX: J20.9 Acute bronchitis, unspecified (principal); J45.909 Unspecified asthma, uncomplicated
CPT/HCPCS: 94640; 87502; 71046; 99285; J7512

== ENCOUNTER 2018-04-19 12:10 | Emergency (ER) | payer OTHER ==
[2018-04-19 12:35] VITALS: BP 122/73; RESP 18; TEMP 98.6
[2018-04-19] MEDS ORDERED: IPRATROPIUM-ALBUTEROL 3 ML NEB INHALATION STA (13:10)
[2018-04-19] MEDS ORDERED: PROMETHAZ-COD 6.25-10 MG/5 ML 5 ML CUP PO STA (13:10)
--- NOTE | 2018-04-19 13:14 | ED ---
URI HPI - General Chief Complaint: Upper Respiratory Infection Stated Complaint: cough Time Seen by Provider: 04/19/18 12:40 Source: patient, RN notes reviewed Mode of arrival: ambulatory Limitations: no limitations - History of Present Illness Initial Comments: 37-year-old male presents emergency Department with chief complaint of cough congestion. Patient states she's been sick for last 3 weeks. Patient was seen in emergency given steroids, inhaler. Patient states that has not helped. Patient states that does have underlying asthma. Patient reports no fever this time states that the first couple weeks he felt like he had a fever. 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 Patient does not take anything for ALLERGIES. Patient denies any ear pain, headache. Patient states he has a primarily dry cough slightly productive at times denies any abdominal pain including nausea and diarrhea constipation. - Related Data Home Medications Medication Instructions Recorded Confirmed Aspirin/Acetaminophen/Caffeine 2 tab PO Q6H PRN 10/24/15 04/19/18 [Excedrin Extra Strength Caplet] Albuterol Inhaler [Ventolin Hfa 2 puff INHALATION RT-Q4H PRN 05/07/17 04/19/18 Inhaler] Previous Rx's Medication Instructions Recorded Albuterol Inhaler [Ventolin Hfa 1 - 2 puff INHALATION Q6HR PRN #1 03/28/18 Inhaler] inhaler Oseltamivir [Tamiflu] 75 mg PO Q12HR #10 cap 04/19/18 predniSONE 50 mg PO DAILY #5 tab 04/19/18 Allergies Allergy/AdvReac Type Severity Reaction Status Date / Time No Known Allergies Allergy Verified 04/19/18 12:35 Review of Systems ROS Statement: Those systems with pertinent positive or pertinent negative responses have been documented in the HPI. ROS Other: All systems not noted in ROS Statement are negative. Past Medical History Past Medical History: Asthma Additional Past Medical History / Comment(s): Headaches,heart murmur History of Any Multi-Drug Resistant Organisms: None Reported Past Surgical History: Hernia Repair, Orthopedic Surgery Additional Past Surgical History / Comment(s): rt middle finger Past Psychological History: No Psychological Hx Reported Smoking Status: Never smoker Past Alcohol Use History: Occasional Past Drug Use History: None Reported - Past Family History Mother Family Medical History: No Reported History Father Family Medical History: Asthma Additional Family Medical History / Comment(s): Pt states that he is very sick but does not want to elaborate General Exam Limitations: no limitations General appearance: alert, in no apparent distress Head exam: Present: atraumatic, normocephalic, normal inspection Eye exam: Present: normal appearance, PERRL, EOMI. Absent: scleral icterus, conjunctival injection, periorbital swelling ENT exam: Present: normal exam, normal oropharynx, mucous membranes moist, TM's normal bilaterally Neck exam: Present: normal inspection. Absent: tenderness, meningismus, lymphadenopathy Respiratory exam: Present: normal lung sounds bilaterally. Absent: respiratory distress, wheezes, rales, rhonchi, stridor Cardiovascular Exam: Present: regular rate, normal rhythm, normal heart sounds. Absent: systolic murmur, diastolic murmur, rubs, gallop, clicks GI/Abdominal exam: Present: soft, normal bowel sounds. Absent: distended, tenderness, guarding, rebound, rigid Neurological exam: Present: alert, oriented X3, CN II-XII intact Skin exam: Present: warm, dry, intact, normal color. Absent: rash Course Vital Signs 04/19/18 04/19/18 04/19/18 12:33 13:15 13:23 Temperature 98.6 F Pulse Rate 89 89 88 Respiratory 18 Rate Blood Pressure 122/73 O2 Sat by Pulse 97 Oximetry Medical Decision Making - Medical Decision Making 37-year-old male presented for cough congestion. Patient is influenza A positive chest x-ray shows evidence of bronchitis. Patient will be treated with Tamiflu at this time return parameters were discussed. - Lab Data Lab Results 04/19/18 04/19/18 Range/Units 12:31 12:31 Influenza Type A RNA Detected H (Not Detectd) Influenza Type B (PCR) Not Detected (Not Detectd) Group A Strep Rapid Negative (Negative) Disposition Clinical Impression: Asthmatic bronchitis, Influenza Disposition: HOME SELF-CARE Condition: Stable Instructions (If sedation given, give patient instructions): Influenza (ED) Additional Instructions: Take [id number] cough suppressant.Please return to the Emergency Department if symptoms worsen or any other concerns. Prescriptions: Oseltamivir [Tamiflu] 75 mg PO Q12HR #10 cap predniSONE 50 mg PO DAILY #5 tab Is patient prescribed a controlled substance at d/c from ED?: No Referrals: Hanna Salinas DO [Primary Care Provider] - 1-2 days Time of Disposition: 13:52
--- NOTE | 2018-04-19 13:20 | XR ---
EXAMINATION TYPE: XR chest 2V DATE OF EXAM: 04/19/2018 COMPARISON: 03/28/2018 HISTORY: 37-year-old male with cough TECHNIQUE: PA and lateral views FINDINGS: The heart is normal size. Mild perihilar peribronchial densities. The aorta and pulmonary vasculature within normal limits. No consolidation or pleural effusion. IMPRESSION: Correlate for bronchitis or asthma. Otherwise, no acute cardiopulmonary process.
[2018-04-19 13:24] VITALS: PULSE 88
== END 2018-04-19 14:09 | disposition home or self-care (01) ==
LOC: EC 12:10
DX: J45.909 Unspecified asthma, uncomplicated (principal); J10.1 Influenza due to other identified influenza virus with other respiratory manifestations
CPT/HCPCS: 71046; 87081; 87430; 87502; 94640; 99284

== ENCOUNTER 2018-06-17 21:15 | Emergency (ER) | payer OTHER ==
[2018-06-17 21:42] VITALS: BP 132/79; PULSE 100; RESP 18; TEMP 98.7
--- NOTE | 2018-06-17 22:24 | ED ---
General Adult HPI - General Chief complaint: Neck Pain/Injury Stated complaint: Neck Pain, Poss Bite? Time Seen by Provider: 06/17/18 22:01 Source: patient, RN notes reviewed, old records reviewed Mode of arrival: ambulatory Limitations: no limitations - History of Present Illness Initial comments: 37-year-old male patient no pertinent past medical history presents to ED after sustaining a possible insect bite on the back of his neck. Patient was approximately 6 PM he was napping with his head down. Patient notes that he felt as if something bit him evacuate his neck. Patient reports that he did have a small welt and some bleeding. Patient denies any other complaints. Systemic: Pt denies fatigue, myalgia, fever/chills, rash. Pt denies weakness, night sweats, weight loss. Neuro: Pt denies headache, visual disturbances, syncope or pre-syncope. HEENT: Pt denies ocular discharge or irritation, otalgia, rhinorrhea, pharyngitis or notable lymphadenopathy. Cardiopulmonary: Pt denies chest pain, SOB, heart palpitations, dyspnea on exertion. Abdominal/GI: Pt denies abdominal pain, n/v/d. : Pt denies dysuria, burning w/ urination, frequency/urgency. Denies new onset urinary or bowel incontinence. MSK: Pt denies myalgia, loss of strength or function in extremities. Neuro: Pt denies new onset weakness, paresthesias. - Related Data Home Medications Medication Instructions Recorded Confirmed Aspirin/Acetaminophen/Caffeine 2 tab PO Q6H PRN 10/23/04/19/18 [Excedrin Extra Strength Caplet] Albuterol Inhaler [Ventolin Hfa 2 puff INHALATION RT-Q4H PRN 05/07/04/19/18 Inhaler] Previous Rx's Medication Instructions Recorded Albuterol Inhaler [Ventolin Hfa 1 - 2 puff INHALATION Q6HR PRN #1 03/28/18 Inhaler] inhaler Albuterol Nebulized [Ventolin 2.5 mg INHALATION Q4H PRN #25 nebu 04/19/18 Nebulized] Oseltamivir [Tamiflu] 75 mg PO Q12HR #10 cap 04/19/18 predniSONE 50 mg PO DAILY #5 tab 04/19/18 Cephalexin [Keflex] 500 mg PO Q12HR 10 Days cap 06/17/18 Allergies Allergy/AdvReac Type Severity Reaction Status Date / Time No Known Allergies Allergy Verified 06/17/18 21:42 Review of Systems ROS Statement: Those systems with pertinent positive or pertinent negative responses have been documented in the HPI. ROS Other: All systems not noted in ROS Statement are negative. Past Medical History Past Medical History: Asthma Additional Past Medical History / Comment(s): Headaches,heart murmur History of Any Multi-Drug Resistant Organisms: None Reported Past Surgical History: Hernia Repair, Orthopedic Surgery Additional Past Surgical History / Comment(s): rt middle finger Past Psychological History: No Psychological Hx Reported Smoking Status: Never smoker Past Alcohol Use History: Occasional Past Drug Use History: None Reported - Past Family History Mother Family Medical History: No Reported History Father Family Medical History: Asthma Additional Family Medical History / Comment(s): Pt states that he is very sick but does not want to elaborate General Exam - General Exam Comments Initial Comments: Constitutional: NAD, AOX3, Pt has pleasant affect. HEENT: NC/AT, trachea midline, neck supple, no lymphadenopathy. Posterior pharynx non erythematous, without exudates. External ears appear normal, without discharge. Mucous membranes moist. Eyes PERRLA, EOM intact. There is no scleral icterus. No pallor noted. Cardiopulmonary: RRR, no murmurs, rubs or gallops, no JVD noted. Lungs CTAB in anterior and posterior woods. No peripheral edema. Abdominal exam: Abdomen soft and non-distended. Abdomen non-tender to palpation in all 4 quadrants. Bowel sounds active in LLQ. No hepatosplenomegaly. No ecchymosis Neuro: CN II-XII grossly intact. No nuchal rigidity. MSK: Small area of erythema approximately 1 x 1 cm with a small amount of bleeding from a small puncture wound on occiptal lobe. No streaking, no cellulitis. No posterior calf tenderness bilaterally, homans sign negative bilaterally. Posterior tibialis and radial pulse +2 bilaterally. Sensation intact in upper and lower extremities. Full active ROM in upper and lower extremities, 5/5 stregnth. Limitations: no limitations Course Vital Signs 06/17/18 21:38 Temperature 98.7 F Pulse Rate 100 Respiratory 18 Rate Blood Pressure 132/79 O2 Sat by Pulse 95 Oximetry Medical Decision Making - Medical Decision Making 37-year-old male patient no pertinent past medical history presents to ED after sustaining a possible insect bite on the back of his neck. Patient was approximately 6 PM he was napping with his head down. Patient notes that he felt as if something bit him evacuate his neck. Patient reports that he did have a small welt and some bleeding. Patient denies any other complaints. Pt VSS, afebrile. Physical exam displayed: Small area of erythema approximately 1 x 1 cm with a small amount of bleeding from a small puncture wound on occiptal lobe. No streaking, no cellulitis. Patient will continue to monitor. Patient prescribed Keflex. Patient will follow with primary care provider in 1-2 days. Patient return to ER if condition worsens in any way. Case discussed with Dr. Feldman. Disposition Clinical Impression: Insect bite Disposition: HOME SELF-CARE Condition: Stable Instructions (If sedation given, give patient instructions): Insect Bite or Sting (ED) Additional Instructions: Patient to adhere to previously discussed treatment plan and will take medication(s) as directed. Patient to follow up with PCP in 1-2 days. Patient to return to ED if symptoms do not improve. Please take antibiotic as prescribed. Please continue to monitor. Please return to ER if condition worsens. Please follow-up with primary care provider in 1-2 days. Prescriptions: Cephalexin [Keflex] 500 mg PO Q12HR 10 Days cap Is patient prescribed a controlled substance at d/c from ED?: No Referrals: None,Stated [Primary Care Provider] - 1-2 days
== END 2018-06-17 22:29 | disposition home or self-care (01) ==
LOC: EC 21:15
DX: S01.03XA Puncture wound without foreign body of scalp, initial encounter (principal); J45.909 Unspecified asthma, uncomplicated; W57.XXXA Bitten or stung by nonvenomous insect and other nonvenomous arthropods, initial encounter; Y93.89 Activity, other specified; Y92.69 Other specified industrial and construction area as the place of occurrence of the external cause
CPT/HCPCS: 99283

== ENCOUNTER 2018-08-09 10:54 | Emergency (ER) | payer OTHER ==
[2018-08-09] MEDS ORDERED: DEXAMETHASONE SOD PHOSPHATE 10 MG/ML 1 ML VIAL IM STA (11:24)
[2018-08-09 11:28] VITALS: RESP 16
--- NOTE | 2018-08-09 11:29 | ED ---
General Adult HPI - General Stated complaint: Congestion Time Seen by Provider: 08/09/18 11:08 Source: patient, RN notes reviewed, old records reviewed - History of Present Illness Initial comments: 37-year-old male presents with 1 week of cough and cold symptoms. Patient states that he's had productive cough with yellow sputum. He's had significant rhinorrhea and nasal congestion. His developed a sore throat. He's had sub jective fever and chills. He has positive sick contacts with similar symptoms. His had some nausea and several episodes of diarrhea. Denies abdominal pain. Denies significant dyspnea. Does have a history of asthma. Was healthy. - Related Data Home Medications Medication Instructions Recorded Confirmed Aspirin/Acetaminophen/Caffeine 2 tab PO Q6H PRN 10/24/15 04/19/18 [Excedrin Extra Strength Caplet] Albuterol Inhaler [Ventolin Hfa 2 puff INHALATION RT-Q4H PRN 05/07/17 04/19/18 Inhaler] Previous Rx's Medication Instructions Recorded Albuterol Inhaler [Ventolin Hfa 1 - 2 puff INHALATION Q6HR PRN #1 03/28/18 Inhaler] inhaler Albuterol Nebulized [Ventolin 2.5 mg INHALATION Q4H PRN #25 nebu 04/19/18 Nebulized] Oseltamivir [Tamiflu] 75 mg PO Q12HR #10 cap 04/19/18 predniSONE 50 mg PO DAILY #5 tab 04/19/18 Cephalexin [Keflex] 500 mg PO Q12HR 10 Days cap 06/17/18 Albuterol Inhaler [Ventolin Hfa 1 - 2 puff INHALATION Q4HR PRN #1 08/09/18 Inhaler] inhaler methylPREDNISolone Dose Pack 4 mg PO DIRECTED #21 package 08/09/18 [Medrol Dose Pack] Allergies Allergy/AdvReac Type Severity Reaction Status Date / Time No Known Allergies Allergy Verified 08/09/18 11:28 Review of Systems ROS Statement: Those systems with pertinent positive or pertinent negative responses have been documented in the HPI. ROS Other: All systems not noted in ROS Statement are negative. Past Medical History Past Medical History: Asthma Additional Past Medical History / Comment(s): Headaches,heart murmur History of Any Multi-Drug Resistant Organisms: None Reported Past Surgical History: Hernia Repair, Orthopedic Surgery Additional Past Surgical History / Comment(s): rt middle finger Past Psychological History: No Psychological Hx Reported Smoking Status: Never smoker Past Alcohol Use History: Occasional Past Drug Use History: None Reported - Past Family History Mother Family Medical History: No Reported History Father Family Medical History: Asthma Additional Family Medical History / Comment(s): Pt states that he is very sick but does not want to elaborate General Exam General appearance: alert, in no apparent distress Head exam: Present: atraumatic, normocephalic Eye exam: Present: normal appearance, PERRL ENT exam: Present: other (Nasal congestion, pharyngeal erythema, no tonsillar swelling or exudate) Neck exam: Present: normal inspection. Absent: tenderness Respiratory exam: Present: normal lung sounds bilaterally. Absent: respiratory distress, wheezes, rhonchi Cardiovascular Exam: Present: regular rate, normal rhythm GI/Abdominal exam: Present: soft. Absent: distended, tenderness, guarding Extremities exam: Present: normal inspection, normal capillary refill. Absent: pedal edema Neurological exam: Present: alert, oriented X3, CN II-XII intact. Absent: motor sensory deficit Psychiatric exam: Present: normal affect, normal mood Skin exam: Present: warm, dry, intact. Absent: cyanosis, diaphoretic Course Vital Signs 08/09/18 11:26 Temperature 97.9 F Pulse Rate 89 Respiratory 16 Rate Blood Pressure 135/88 O2 Sat by Pulse 97 Oximetry Medical Decision Making - Medical Decision Making 1-year-old male with subjective fever, cough, URI symptoms. Chest x-ray obtained, negative for focal pneumonia. Patient given Decadron in the emergency department. Will be prescribed steroids and albuterol. Patient likely has viral URI. Return with worsening or changing symptoms. Disposition Clinical Impression: Upper respiratory infection, Acute bronchitis Disposition: HOME SELF-CARE Condition: Good Prescriptions: methylPREDNISolone Dose Pack [Medrol Dose Pack] 4 mg PO DIRECTED #21 package Albuterol Inhaler [Ventolin Hfa Inhaler] 1 - 2 puff INHALATION Q4HR PRN #1 inhaler PRN Reason: Shortness Of Breath Is patient prescribed a controlled substance at d/c from ED?: No Referrals: None,Stated [Primary Care Provider] - 1-2 days Adia Floyd MD [REFERRING] - 1-2 days Time of Disposition: 11:28
--- NOTE | 2018-08-09 12:24 | XR ---
EXAMINATION TYPE: XR chest 2V DATE OF EXAM: 08/09/2018 HISTORY: Congestion. REFERENCE: Previous study dated 04/19/2018. FINDINGS: The lungs are clear. Pleural spaces are clear. The heart is not enlarged. IMPRESSION: NORMAL CHEST.
[2018-08-09 12:33] VITALS: BP 138/74; PULSE 78; TEMP 97.8
== END 2018-08-09 12:32 | disposition home or self-care (01) ==
LOC: EC 10:54
DX: J20.9 Acute bronchitis, unspecified (principal); J06.9 Acute upper respiratory infection, unspecified; R11.0 Nausea; R19.7 Diarrhea, unspecified; J45.909 Unspecified asthma, uncomplicated
CPT/HCPCS: 71046; 99284; 96372; J1100

== ENCOUNTER 2018-10-10 22:24 | Emergency (ER) | payer OTHER ==
--- NOTE | 2018-10-10 23:46 | XR ---
History: ITS.REASON XR Reason: abdominal pain Exam: XR KUB 2 total upright views Comparison: 01/24/2017 FINDINGS/IMPRESSION: Bowel gas pattern appears within limits. No evidence of pneumoperitoneum. Visualized lung bases are clear.
[2018-10-11 00:26] LABS: Appearance,Urine Clear (Clear); Bilirubin,Urine Negative (Negative); Blood,Urine Negative (Negative); Color,Urine Light Yellow; Glucose,Urine (UA) Negative (Negative); Ketones,Urine Negative (Negative); Leukocyte Esterase,Urine Negative (Negative); Nitrite,Urine Negative (Negative); Protein,Urine Negative (Negative); Specific Gravity,Urine 1.015 (1.001-1.035); Urobilinogen,Urine <2.0 mg/dL (<2.0)
--- NOTE | 2018-10-11 00:31 | ED ---
Abdominal Pain HPI - General Chief Complaint: Abdominal Pain Stated Complaint: Hip pain Time Seen by Provider: 10/10/18 23:02 Source: patient Mode of arrival: ambulatory Limitations: no limitations - History of Present Illness Initial Comments: This patient is a 38-year-old man who presents for evaluation of pain at the right groin. The patient noticed this approximately 3:30 PM. He states that the pain is an aching, that gets worse when he tries to move his right leg. He states that for example he tries to picker/puller his right leg and put on the bed the pain is extremely bad. If he is just lying flat he states he doesn't notice it. The patient denies any injury. Patient denies any change in bowel movements or urination. No nausea or vomiting. No fever or chills. No chest symptoms. Patient denies any preceding claudication type symptoms. No testicular or scrotal swelling or pain MD Complaint: abdominal pain Onset/Timin -: hour(s) Location: RLQ Radiation: other (Right leg) Severity: moderate Quality: sharp Consistency: intermittent Improves With: nothing Worsens With: movement (Of his right leg) Associated Symptoms: denies other symptoms - Related Data Home Medications Medication Instructions Recorded Confirmed Aspirin/Acetaminophen/Caffeine 2 tab PO Q6H PRN 10/24/15 10/10/18 [Excedrin Extra Strength Caplet] Albuterol Inhaler [Ventolin Hfa 2 puff INHALATION RT-Q6H PRN 10/10/18 10/10/18 Inhaler] Albuterol Nebulized [Ventolin 2.5 mg INHALATION RT-Q4H PRN 10/10/18 10/10/18 Nebulized] Previous Rx's Medication Instructions Recorded Ibuprofen 800 mg PO TID #20 tablet 10/11/18 Allergies Allergy/AdvReac Type Severity Reaction Status Date / Time No Known Allergies Allergy Verified 10/10/18 23:08 Review of Systems ROS Statement: Those systems with pertinent positive or pertinent negative responses have been documented in the HPI. ROS Other: All systems not noted in ROS Statement are negative. Constitutional: Denies: fever, chills Respiratory: Denies: cough, dyspnea Cardiovascular: Denies: chest pain, palpitations, edema Gastrointestinal: Reports: as per HPI, abdominal pain (Right groin). Denies: nausea, vomiting, diarrhea, constipation, melena, hematochezia Genitourinary: Denies: dysuria, frequency, hematuria, discharge, testicular pain, testicular mass Musculoskeletal: Denies: back pain Skin: Denies: rash Neurological: Denies: weakness, numbness Past Medical History Past Medical History: Asthma Additional Past Medical History / Comment(s): Headaches,heart murmur History of Any Multi-Drug Resistant Organisms: None Reported Past Surgical History: Hernia Repair, Orthopedic Surgery Additional Past Surgical History / Comment(s): rt middle finger Past Psychological History: No Psychological Hx Reported Smoking Status: Never smoker Past Alcohol Use History: Occasional Past Drug Use History: None Reported - Past Family History Mother Family Medical History: No Reported History Father Family Medical History: Asthma Additional Family Medical History / Comment(s): Pt states that he is very sick but does not want to elaborate General Exam Limitations: no limitations General appearance: alert, in no apparent distress Head exam: Present: atraumatic, normocephalic Eye exam: Present: normal appearance. Absent: scleral icterus, conjunctival injection Respiratory exam: Present: normal lung sounds bilaterally. Absent: respiratory distress, wheezes, rales, rhonchi, stridor Cardiovascular Exam: Present: regular rate, normal rhythm, normal heart sounds. Absent: systolic murmur, diastolic murmur, rubs, gallop GI/Abdominal exam: Present: soft, normal bowel sounds. Absent: distended, tenderness, guarding, rebound, rigid, mass, pulsatile mass, hernia Extremities exam: Present: normal inspection, normal capillary refill. Absent: pedal edema, calf tenderness Back exam: Present: normal inspection. Absent: CVA tenderness (R), CVA tenderness (L) Neurological exam: Present: alert Skin exam: Present: warm, dry, intact, normal color. Absent: rash Course Vital Signs 10/10/18 22:43 Temperature 98.1 F Pulse Rate 84 Respiratory 16 Rate Blood Pressure 126/82 O2 Sat by Pulse 98 Oximetry Medical Decision Making - Lab Data Result diagrams: 10/10/18 23:40 Lab Results 10/10/18 10/11/18 Range/Units 23:40 00:20 WBC 10.5 (3.8-10.6) k/uL RBC 4.55 (4.30-5.90) m/uL Hgb 12.8 L (13.0-17.5) gm/dL Hct 39.9 (39.0-53.0) % MCV 87.8 (80.0-100.0) fL MCH 28.2 (25.0-35.0) pg MCHC 32.1 (31.0-37.0) g/dL RDW 14.0 (11.5-15.5) % Plt Count 288 (150-450) k/uL Neutrophils % 73 % Lymphocytes % 18 % Monocytes % 5 % Eosinophils % 3 % Basophils % 1 % Neutrophils # 7.6 (1.3-7.7) k/uL Lymphocytes # 1.9 (1.0-4.8) k/uL Monocytes # 0.5 (0-1.0) k/uL Eosinophils # 0.3 (0-0.7) k/uL Basophils # 0.1 (0-0.2) k/uL Urine Color Light Yellow Urine Appearance Clear (Clear) Urine pH 6.0 (5.0-8.0) Ur Specific [place] 1.015 (1.001-1.035) Urine Protein Negative (Negative) Urine Glucose (UA) Negative (Negative) Urine Ketones Negative (Negative) Urine Blood Negative (Negative) Urine Nitrite Negative (Negative) Urine Bilirubin Negative (Negative) Urine Urobilinogen <2.0 (<2.0) mg/dL Ur Leukocyte Esterase Negative (Negative) Disposition Clinical Impression: Strain of muscle of right groin region Disposition: HOME SELF-CARE Condition: Good Instructions (If sedation given, give patient instructions): Groin Strain (ED) Prescriptions: Ibuprofen 800 mg PO TID #20 tablet Is patient prescribed a controlled substance at d/c from ED?: No Referrals: Hnana Salinas DO [Primary Care Provider] - 1-2 days
[2018-10-11 00:52] LABS: Basophils # (A) 0.1 k/uL (0-0.2); Basophils % (A) 1 %; Eosinophils # (A) 0.3 k/uL (0-0.7); Eosinophils % (A) 3 %; HCT 39.9 % (39.0-53.0); HGB 12.8 gm/dL (13.0-17.5); Lymphocytes # (A) 1.9 k/uL (1.0-4.8); Lymphocytes % (A) 18 %; MCH 28.2 pg (25.0-35.0); MCHC 32.1 g/dL (31.0-37.0); MCV 87.8 fL (80.0-100.0); Mean Platelet Volume 6.7; Monocytes # (A) 0.5 k/uL (0-1.0); Monocytes % (A) 5 %; Neutrophils # (A) 7.6 k/uL (1.3-7.7); Neutrophils % (A) 73 %; Platelet Count 288 k/uL (150-450); RBC 4.55 m/uL (4.30-5.90); WBC 10.5 k/uL (3.8-10.6)
[2018-10-11 01:02] LABS: ALT 19 U/L (21-72); AST 16 U/L (17-59); African American GFR (CKD) >90 (>60 ml/min/1.73 sqM); Albumin 4.1 g/dL (3.5-5.0); Alkaline Phosphatase 90 U/L (38-126); Amylase 57 U/L (30-110); Anion Gap 10 mmol/L; Blood Urea Nitrogen 17 mg/dL (9-20); Calcium 8.9 mg/dL (8.4-10.2); Carbon Dioxide 24 mmol/L (22-30); Chloride 104 mmol/L (98-107); Glucose 108 mg/dL (74-99); Non-African American GFR(CKD) >90 (>60 ml/min/1.73 sqM); Potassium 3.9 mmol/L (3.5-5.1); Sodium 138 mmol/L (137-145); Total Bilirubin 0.3 mg/dL (0.2-1.3); Total Protein 7.2 g/dL (6.3-8.2)
[2018-10-11 01:21] VITALS: BP 123/71; PULSE 78; RESP 18; TEMP 97.5
== END 2018-10-11 01:21 | disposition home or self-care (01) ==
LOC: EC 22:24
DX: S39.011A Strain of muscle, fascia and tendon of abdomen, initial encounter (principal); M25.551 Pain in right hip; J45.909 Unspecified asthma, uncomplicated; Z87.19 Personal history of other diseases of the digestive system; Z98.890 Other specified postprocedural states; Z79.899 Other long term (current) drug therapy
CPT/HCPCS: 36415; 74018; 80053; 81003; 82150; 83690; 85025; 99284

== ENCOUNTER → 2018-10-16 | Outpatient (CLI) | payer OTHER ==
[2018-10-16 23:57] LABS: Cat Epith & Dander IgE 0.48 kU/L; Dermato. farinae IgE <0.10 kU/L; Dog Dander IgE <0.10 kU/L
[2018-10-16 23:58] LABS: Aspergillus fumagatus IgE <0.10 kU/L; Cockroach IgE <0.10 kU/L
[2018-10-16 23:59] LABS: Alternaria alternata IgE <0.10 kU/L; Birch IgE <0.10 kU/L; Maple (Box Elder) IgE <0.10 kU/L
[2018-10-17] LABS: Elm IgE <0.10 kU/L; Oak IgE <0.10 kU/L
[2018-10-17 00:01] LABS: Ragweed,Common IgE <0.10 kU/L
[2018-10-17 00:02] LABS: Peanut IgE <0.10 kU/L; Red Top (Bentgrass) IgE <0.10 kU/L
[2018-10-17 00:04] LABS: Shrimp IgE <0.10 kU/L; Soybean IgE <0.10 kU/L
[2018-10-17 00:05] LABS: Clam IgE <0.10 kU/L; Egg White IgE <0.10 kU/L; Scallop IgE <0.10 kU/L; Walnut IgE (Food) <0.10 kU/L
[2018-10-17 00:06] LABS: Codfish IgE <0.10 kU/L
== END | disposition home or self-care (01) ==
LOC: LABWHC1 15:06
PROVIDERS: ATTEND Internal Medicine Critical Care Medicine
DX: R05 Cough (principal); R06.00 Dyspnea, unspecified
CPT/HCPCS: 36415; 82785; 86003

== ENCOUNTER → 2018-11-17 | Outpatient (CLI) | payer OTHER | END | disposition home or self-care (01) | LOC: CPPFTMAIN 11:12 | PROVIDERS: ATTEND Internal Medicine Critical Care Medicine | DX: J45.909 Unspecified asthma, uncomplicated (principal) | CPT/HCPCS: 94060; 94726; 94729 ==

== ENCOUNTER 2019-01-09 11:35 | Emergency (ER) | payer OTHER ==
[2019-01-09 11:41] VITALS: BP 136/80; PULSE 96; RESP 18; TEMP 98
--- NOTE | 2019-01-09 12:19 | XR ---
EXAMINATION TYPE: XR ankle complete LT, XR foot complete LT , 6 VIEWS DATE OF EXAM ORDERED: 01/09/2019 HISTORY: pain. COMPARISON: None. FINDINGS: No fracture is seen about the ankle. No ankle joint effusion is seen. There is a small Ach illes and plantar spur seen arising from the calcaneus. Osseous structures about the foot are unremarkable. No fracture or dislocation is seen. There is tibi al deviation of the fourth and fifth digit. There is a hammertoe deformity of the fourth digit. IMPRESSION: NO ACUTE OSSEOUS LESION.
--- NOTE | 2019-01-09 12:26 | ED ---
Lower Extremity Injury HPI - General Chief Complaint: Extremity Injury, Lower Stated Complaint: LEFT ANKLE PAIN Time Seen by Provider: 01/09/19 11:40 Source: patient Mode of arrival: ambulatory Limitations: no limitations - History of Present Illness Initial Comments: The patient is a 38-year-old male with past medical history of asthma who presents emergency room with reported left ankle pain. He states that it has been going on for the past 2 weeks. 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 States that he did run a pallette into his left ankle however this was after the pain had already started. The pain is located primarily around the lateral malleolus. He has been able to ambulate on at. Denies any lower extremity weakness. Mild ankle swelling. Denies any calf pain or swelling. No history of DVT or PE. No family history of blood clotting disorders. No recent travel prolonged immobility. No recent surgeries. Denies any knee or hip pain. Denies warm, swollen joint. There are no other alleviating, precipitating or modifying factors - Related Data Home Medications Medication Instructions Recorded Confirmed Aspirin/Acetaminophen/Caffeine 2 tab PO Q6H PRN 10/24/15 10/10/18 [Excedrin Extra Strength Caplet] Albuterol Inhaler [Ventolin Hfa 2 puff INHALATION RT-Q6H PRN 10/10/18 10/10/18 Inhaler] Albuterol Nebulized [Ventolin 2.5 mg INHALATION RT-Q4H PRN 10/10/18 10/10/18 Nebulized] Previous Rx's Medication Instructions Recorded Ibuprofen 800 mg PO TID #20 tablet 10/11/18 Allergies Allergy/AdvReac Type Severity Reaction Status Date / Time No Known Allergies Allergy Verified 01/09/19 11:38 Review of Systems ROS Statement: Those systems with pertinent positive or pertinent negative responses have been documented in the HPI. ROS Other: All systems not noted in ROS Statement are negative. Past Medical History Past Medical History: Asthma Additional Past Medical History / Comment(s): Headaches,heart murmur History of Any Multi-Drug Resistant Organisms: None Reported Past Surgical History: Hernia Repair, Orthopedic Surgery Additional Past Surgical History / Comment(s): rt middle finger Past Psychological History: No Psychological Hx Reported Smoking Status: Never smoker Past Alcohol Use History: Occasional Past Drug Use History: None Reported - Past Family History Mother Family Medical History: No Reported History Father Family Medical History: Asthma Additional Family Medical History / Comment(s): Pt states that he is very sick but does not want to elaborate General Exam Limitations: no limitations General appearance: alert, in no apparent distress Respiratory exam: Present: normal lung sounds bilaterally. Absent: respiratory distress Cardiovascular Exam: Present: regular rate, normal rhythm GI/Abdominal exam: Present: soft. Absent: distended Extremities exam: Present: full ROM, tenderness (at the lateral malleolus of the left ankle. Intact hip flexors, knee extensors, ankle and great toe dorsiflexors and foot plantarflexors. Pain with inversion and over the anterior TFL. 2+ DP and PT pulses. Intact sentation distal. Normal cap refill) Course Vital Signs 01/09/19 01/09/19 11:38 13:26 Temperature 98 F 98 F Pulse Rate 96 96 Respiratory 18 18 Rate Blood Pressure 136/80 136/80 O2 Sat by Pulse 98 98 Oximetry Medical Decision Making - Medical Decision Making Upon arrival the patient is placed in room 20. He took Motrin prior to hospital arrival. I did recommend a the patient's left ankle and foot. Imaging is reviewed and demonstrate no acute fracture. I discussed diagnosis, differential treatment options. I placed the patient stirrups splint. I informed him he should take NSAIDs. Rest, ice and elevate the extremity. He'll be given orthopedic follow-up. If the patient has any new or worsening symptoms he should return to the emergency room. Patient is discharged home in stable condition Disposition Clinical Impression: Left ankle pain Disposition: HOME SELF-CARE Condition: Stable Instructions (If sedation given, give patient instructions): Ankle Sprain (ED) Additional Instructions: Take Motrin at home as needed for pain. Rest, ice and elevate the extremity. Wear the splint while working. Follow up with orthopedics. Return to the emergency department for any new or worsening symptoms Is patient prescribed a controlled substance at d/c from ED?: No Referrals: Hanna Salinas DO [Primary Care Provider] - 1-2 days Vick Flanagan DO [Doctor of Osteopathic Medicine] - 1-2 days Time of Disposition: 12:46
== END 2019-01-09 13:26 | disposition home or self-care (01) ==
LOC: EC 11:35
DX: M25.572 Pain in left ankle and joints of left foot (principal); M79.89 Other specified soft tissue disorders; J45.909 Unspecified asthma, uncomplicated; Z79.899 Other long term (current) drug therapy
CPT/HCPCS: 99283; 29515; 73610; 73630; L4350

== ENCOUNTER 2019-03-01 18:40 | Emergency (ER) | payer OTHER ==
--- NOTE | 2019-03-01 19:06 | ED ---
URI HPI <Mary Jane Stanley - Last Filed: 03/01/19 19:05> - General Source: patient, RN notes reviewed <Vick Stratton - Last Filed: 03/01/19 20:05> - General Stated Complaint: Coughing/sore throat/vomiting Time Seen by Provider: 03/01/19 19:07 - History of Present Illness Initial Comments: seen in triage cough/congestion x 2 days, vomiting today influenza, cxr in (Mary Jane Stanley) 38-year-old male presents emergency from chief complaint cough congestion nausea. Patient states that he's had increasing nasal congestion, sore throat slightly productive cough. Patient admits to subjective fevers and chills. Patient denies any chest pain or current shortness of breath. Patient states that he's had 3 episodes of vomiting posttussive. Patient denies any abdominal pain no back pain no flank pain. Patient states she's had multiple sick contacts. Patient has no complaints of diarrhea no dysuria. (Vick Stratton) - Related Data Home Medications Medication Instructions Recorded Confirmed Aspirin/Acetaminophen/Caffeine 2 tab PO Q6H PRN 10/24/15 10/10/18 [Excedrin Extra Strength Caplet] Albuterol Inhaler [Ventolin Hfa 2 puff INHALATION RT-Q6H PRN 10/10/18 10/10/18 Inhaler] Albuterol Nebulized [Ventolin 2.5 mg INHALATION RT-Q4H PRN 10/10/18 10/10/18 Nebulized] Previous Rx's Medication Instructions Recorded Ibuprofen 800 mg PO TID #20 tablet 10/11/18 Azithromycin [Zithromax Z-pack] 0 mg PO DIRECTED #1 pack 03/01/19 Ondansetron Odt [Zofran Odt] 4 mg PO Q8HR PRN #10 tab 03/01/19 Allergies Allergy/AdvReac Type Severity Reaction Status Date / Time Influenza Virus Vaccines Allergy Anaphylaxis Verified 03/01/19 19:07 Review of Systems ROS Other: All systems not noted in ROS Statement are negative. <Mary Jane Stanley - Last Filed: 03/01/19 19:05> ROS Other: All systems not noted in ROS Statement are negative. <Vick Stratton - Last Filed: 03/01/19 20:05> ROS Statement: Those systems with pertinent positive or pertinent negative responses have been documented in the HPI. Past Medical History Past Medical History: Asthma Additional Past Medical History / Comment(s): Headaches,heart murmur History of Any Multi-Drug Resistant Organisms: None Reported Past Surgical History: Hernia Repair, Orthopedic Surgery Additional Past Surgical History / Comment(s): rt middle finger Past Psychological History: No Psychological Hx Reported Smoking Status: Never smoker Past Alcohol Use History: Occasional Past Drug Use History: None Reported - Past Family History Mother Family Medical History: No Reported History Father Family Medical History: Asthma Additional Family Medical History / Comment(s): Pt states that he is very sick but does not want to elaborate <Mary Jane Stanley - Last Filed: 03/01/19 19:05> General Exam General appearance: alert, in no apparent distress Head exam: Present: atraumatic, normocephalic, normal inspection Eye exam: Present: normal appearance, PERRL, EOMI. Absent: scleral icterus, conjunctival injection, periorbital swelling ENT exam: Present: normal exam, normal oropharynx, mucous membranes moist, TM's normal bilaterally, normal external ear exam Neck exam: Present: normal inspection, full ROM. Absent: tenderness, meningismus, lymphadenopathy Respiratory exam: Present: normal lung sounds bilaterally. Absent: respiratory distress, wheezes, rales, rhonchi, stridor Cardiovascular Exam: Present: regular rate, normal rhythm, normal heart sounds. Absent: systolic murmur, diastolic murmur, rubs, gallop, clicks GI/Abdominal exam: Present: soft, normal bowel sounds. Absent: distended, tenderness, guarding, rebound, rigid <Vick Stratton - Last Filed: 03/01/19 20:05> Course Vital Signs 03/01/19 03/01/19 19:04 19:45 Temperature 99.4 F Pulse Rate 104 H Respiratory 22 19 Rate Blood Pressure 136/80 O2 Sat by Pulse 96 Oximetry Medical Decision Making <Vick Stratton - Last Filed: 03/01/19 20:05> - Medical Decision Making Chest x-ray, influenza negative. Patient to for acute bronchitis. Patient has posttussive emesis will be given Zofran return parameters were discussed. (Vick Stratton) - Lab Data Lab Results 03/01/19 Range/Units 19:07 Influenza Type A RNA Not Detected (Not Detectd) Influenza Type B (PCR) Not Detected (Not Detectd) Disposition <Mary Jane Stanley L - Last Filed: 03/01/19 19:05> Is patient prescribed a controlled substance at d/c from ED?: No Time of Disposition: 20:05 <Vick Stratton - Last Filed: 03/01/19 20:05> Clinical Impression: Acute bronchitis, Nausea & vomiting Disposition: HOME SELF-CARE Condition: Stable Instructions (If sedation given, give patient instructions): Upper Respiratory Infection (ED) Additional Instructions: Please return to the Emergency Department if symptoms worsen or any other concerns. Prescriptions: Azithromycin [Zithromax Z-pack] 0 mg PO DIRECTED #1 pack Ondansetron Odt [Zofran Odt] 4 mg PO Q8HR PRN #10 tab PRN Reason: Nausea Referrals: Hanna Salinas DO [Primary Care Provider] - 1-2 days
[2019-03-01] MEDS ORDERED: ONDANSETRON ODT 4 MG TAB PO STA (19:34)
--- NOTE | 2019-03-01 19:46 | XR ---
EXAMINATION TYPE: XR chest 2V DATE OF EXAM: 03/01/2019 COMPARISON: 10/16/2018 HISTORY: Short of breath. Cough TECHNIQUE: 2 views FINDINGS: Heart and mediastinum are normal. Lungs are clear. Diaphragm is normal. Bony thorax appears normal. IMPRESSION: Normal chest. No change.
[2019-03-01 21:10] VITALS: BP 124/74; PULSE 96; RESP 18; TEMP 98.2
== END 2019-03-01 21:10 | disposition home or self-care (01) ==
LOC: EC 18:40
DX: J20.9 Acute bronchitis, unspecified (principal); R11.2 Nausea with vomiting, unspecified; J45.909 Unspecified asthma, uncomplicated; Z88.7 Allergy status to serum and vaccine
CPT/HCPCS: 71046; 87502; 99283

== ENCOUNTER 2019-03-03 11:27 | Emergency (ER) | payer OTHER ==
[2019-03-03 11:36] VITALS: RESP 18
[2019-03-03] MEDS ORDERED: METOCLOPRAMIDE 5 MG/ML 2 ML VIAL IVP STA (13:02)
[2019-03-03] MEDS ORDERED: diphenhydrAMINE 50 MG/ML 1 ML VIAL IVP STA (13:02)
[2019-03-03] MEDS ORDERED: ACETAMINOPHEN TAB 325 MG TAB PO STA (13:02)
[2019-03-03] MEDS ORDERED: LORATADINE 10 MG TAB PO STA (13:04)
[2019-03-03] MEDS ORDERED: AMOXIC-POT CLAV 875MG STARTER 2 EACH TABLET PO STA (13:04)
[2019-03-03] MEDS ORDERED: AMOXIC-POT CLAV 875-125MG 1 EACH TAB PO STA (13:04)
--- NOTE | 2019-03-03 13:04 | CT ---
EXAMINATION TYPE: CT brain wo con DATE OF EXAM: 03/03/2019 COMPARISON: NONE HISTORY: JERRY, Tinnitus, left eye vision changes CT DLP: 1094.4 mGycm. Automated Exposure Control for Dose Reduction was Utilized. TECHNIQUE: CT scan of the head is performed without contrast. FINDINGS: There is no acute intracranial hemorrhage, mass effect, or midline shift identified. The ventricles and sulci are within normal limits in size. The globes are intact. Moderate mucosal thic kening with air-fluid levels are seen in the maxillary sinuses with moderate to severe mucosal thicke rebecca in the ethmoid sinuses and moderate mucosal thickening of the sphenoid sinuses. 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 IMPRESSION: 1. No acute intracranial hemorrhage, mass effect, or midline shift is seen. 2. Moderate to severe pansinusitis with air-fluid levels indicating acute sinusitis.
--- NOTE | 2019-03-03 13:12 | ED ---
General Adult HPI - General Chief complaint: ENT Stated complaint: recheck- ENT Time Seen by Provider: 03/03/19 11:41 Source: patient, RN notes reviewed, old records reviewed Mode of arrival: wheelchair Limitations: no limitations - History of Present Illness Initial comments: 38-year-old male patient who was recently seen in this emergency department for cough and congestion returns emergency department today for chief complaint of left-sided tinnitus, mild frontal headache and behind eye, reports he has had some mild flickering of his vision. Physical basis history of a migraine headache, however they're normal and the other side. Denies acute onset thunderclap headache, or worsening colitis. Denies any other complaints at this time. Systemic: Pt denies fatigue, fever/chills, rash. Pt denies weakness, night sweats, weight loss. Neuro: Pt denies syncope or pre-syncope. HEENT: Pt denies ocular discharge or irritation, otalgia, rhinorrhea, pharyngitis or notable lymphadenopathy. Cardiopulmonary: Pt denies chest pain, SOB, heart palpitations, dyspnea on exertion. Abdominal/GI: Pt denies abdominal pain, n/v/d. : Pt denies dysuria, burning w/ urination, frequency/urgency. Denies new onset urinary or bowel incontinence. MSK: Pt denies myalgia, loss of strength or function in extremities. Neuro: Pt denies new onset weakness, paresthesias. - Related Data Home Medications Medication Instructions Recorded Confirmed Aspirin/Acetaminophen/Caffeine 2 tab PO Q6H PRN 10/24/15 10/10/18 [Excedrin Extra Strength Caplet] Albuterol Inhaler [Ventolin Hfa 2 puff INHALATION RT-Q6H PRN 10/10/18 10/10/18 Inhaler] Albuterol Nebulized [Ventolin 2.5 mg INHALATION RT-Q4H PRN 10/10/18 10/10/18 Nebulized] Previous Rx's Medication Instructions Recorded Ibuprofen 800 mg PO TID #20 tablet 10/11/18 Azithromycin [Zithromax Z-pack] 0 mg PO DIRECTED #1 pack 03/01/19 Azithromycin [Zithromax Z-pack] 0 mg PO DIRECTED #1 pack 03/01/19 Ondansetron Odt [Zofran Odt] 4 mg PO Q8HR PRN #10 tab 03/01/19 Ondansetron Odt [Zofran Odt] 4 mg PO Q8HR PRN #10 tab 03/01/19 Amoxicillin/Potassium Clav 1 tab PO Q12HR 10 Days #20 tab 03/03/19 [Augmentin 875-125 Tablet] Loratadine [Claritin] 10 mg PO DAILY 14 Days #14 tab 03/03/19 Allergies Allergy/AdvReac Type Severity Reaction Status Date / Time Influenza Virus Vaccines Allergy Anaphylaxis Verified 03/01/19 19:07 Review of Systems ROS Statement: Those systems with pertinent positive or pertinent negative responses have been documented in the HPI. ROS Other: All systems not noted in ROS Statement are negative. Past Medical History Past Medical History: Asthma Additional Past Medical History / Comment(s): Headaches,heart murmur History of Any Multi-Drug Resistant Organisms: None Reported Past Surgical History: Hernia Repair, Orthopedic Surgery Additional Past Surgical History / Comment(s): rt middle finger Past Psychological History: No Psychological Hx Reported Smoking Status: Never smoker Past Alcohol Use History: Occasional Past Drug Use History: None Reported - Past Family History Mother Family Medical History: No Reported History Father Family Medical History: Asthma Additional Family Medical History / Comment(s): Pt states that he is very sick but does not want to elaborate General Exam - General Exam Comments Initial Comments: Constitutional: NAD, AOX3, Pt has pleasant affect. HEENT: NC/AT, trachea midline, neck supple, no lymphadenopathy. Posterior pharynx non erythematous, without exudates. External ears appear normal, without discharge. TM pale quinones bilaterally. Effusion noted behind left TM, no effusion behind the right TM. Mucous membranes moist. Eyes PERRLA, EOM intact. There is no scleral icterus. No pallor noted. Cardiopulmonary: RRR, no murmurs, rubs or gallops, no JVD noted. Lungs CTAB in anterior and posterior woods. No peripheral edema. Abdominal exam: Abdomen soft and non-distended. Abdomen non-tender to palpation in all 4 quadrants. Bowel sounds active in LLQ. No hepatosplenomegaly. No ecchymosis Neuro: CN II-XII intact. No nuchal rigidity. No raccon eyes, no glass sign, no hemotympanum. No cervical spinal tenderness. NIH 0. MSK: No posterior calf tenderness bilaterally, homans sign negative bilaterally. Posterior tibialis and radial pulse +2 bilaterally. Sensation intact in upper and lower extremities. Full active ROM in upper and lower extremities, 5/5 stregnth. Limitations: no limitations Course Vital Signs 03/03/19 11:33 Temperature 98.7 F Pulse Rate 104 H Respiratory 18 Rate Blood Pressure 139/75 O2 Sat by Pulse 96 Oximetry Medical Decision Making - Medical Decision Making 38-year-old male patient who was recently seen in this emergency department for cough and congestion returns emergency department today for chief complaint of left-sided tinnitus, mild frontal headache and behind eye, reports he has had some mild flickering of his left sided vision. Physical basis history of a migraine headache, however they're normal and the other side. Denies acute onset thunderclap headache, or worsening colitis. Denies any other complaints at this time. Patient vital signs are stable, afebrile. Physical exam did dis play effusion behind left tympanic membrane. Neurologic exam is within normal limits. CT brain C-spine displayed acute sinusitis. No acute intracranial hemorrhage or mass effect or midline shift. Patient reports vision complaint resolved as well as headache. Headache is resolved and also before intervention. Patient likely experiencing tinnitus from the ear effusion. Patient may have been experiencing the beginning of a migraine headache. Patient discharged with Augmentin, Claritin. Will follow up with primary care provider and ENT referral. Posterior ER immediately if condition worsens in any way. Case discussed iwth Dr. Feldman. Disposition Clinical Impression: Sinusitis, Headache, Tinnitus Disposition: HOME SELF-CARE Condition: Stable Instructions (If sedation given, give patient instructions): Acute Headache (ED), Sinusitis (ED) Additional Instructions: Take antibiotic as directed. Take Claritin as directed. Follow-up with primary care provider tomorrow. Follow with ENT if tinnitus remains. Return to ER if condition worsens in any way. Prescriptions: Amoxicillin/Potassium Clav [Augmentin 875-125 Tablet] 1 tab PO Q12HR 10 Days #20 tab Loratadine [Claritin] 10 mg PO DAILY 14 Days #14 tab Is patient prescribed a controlled substance at d/c from ED?: No Referrals: Hanna Salinas DO [Primary Care Provider] - 1-2 days Teddy Bailey MD [STAFF PHYSICIAN] - 1-2 days
[2019-03-03 14:35] VITALS: BP 108/62; PULSE 61; TEMP 99.2
== END 2019-03-03 14:42 | disposition home or self-care (01) ==
LOC: EC 11:27
DX: J32.4 Chronic pansinusitis (principal); H93.12 Tinnitus, left ear; J45.909 Unspecified asthma, uncomplicated; G43.909 Migraine, unspecified, not intractable, without status migrainosus; Z88.7 Allergy status to serum and vaccine
CPT/HCPCS: 70450; 99284; 96374; 96375; J1200; J2765

== ENCOUNTER → 2021-02-21 | Outpatient (CLI) | payer OTHER ==
[~2021-02-21] MED LIST: CASIRIVIMAB (REGN10933) (EUA) 600 MG, IMDEVIMAB (REGN10987) (EUA) 600 MG in SODIUM CHLO... IVPB ONE; SODIUM CHLORIDE 0.9% 50 ML IVPB ONE; SODIUM CHLORIDE 0.9% 500 ML 500 ML in EMPTY BAG 1 BAG IV PRN
[2021-02-21 13:35] VITALS: TEMP 98.3
[2021-02-21 13:41] VITALS: BP 123/76; PULSE 79; RESP 18
== END ==
LOC: PROCWHC3 13:09
PROVIDERS: ATTEND Family Medicine
DX: U07.1 COVID-19 (principal); J45.909 Unspecified asthma, uncomplicated; Z88.7 Allergy status to serum and vaccine
CPT/HCPCS: Q0244; M0243